=== PATIENT | male | born 1935 | race Caucasian/White ===

== ENCOUNTER 2016-08-23 11:34 | Inpatient (IN) | payer MEDICARE ==
--- NOTE | 2016-08-23 12:56 | ED ---
Williams Carson Karl, scribed for Janina Rosa MD on 08/23/16 at 1236 . Lower Extremity - HPI Summary HPI Summary: 80 y/o M AL presents w/ c/o constant 8/10 pain in his left foot for the past 2 days. Pt, with at bedside, stated that his left foot is swollen and he "cannot put any pressure on it" and is "afraid to fall down." Pt attempted to walk to the bathroom, had to put weight on his heal second to pain and was unable to walk. Pain is primarily along medial aspect of foot and arch. No ankle pain. Pt denies trauma. No calf pain. Pt chronically has edema in b/l LE - states has chf, a fib and is on water pills Pt's left foot is progressively swollen. Pt denies fevers, chills, rash. pt denies cp, sob, abd pain. No DIAZ, vision changes. No abd pain. No nausea, vomiting, diarrhea. No h/o gout. Pt normally takes Tramadol as needed for pain, Xanax, and Warfarin with his last dose of Tramadol being yesterday. Pt has been eating/drinking normally.Pt is very hard of hearing. Hx: A-fib, CHF, HTN, aortic valve replacement. - History of Current Complaint Chief Complaint: EDExtremityLower Stated Complaint: LEFT FOOT SWELLING Time Seen by Provider: 08/23/16 12:20 Hx Obtained From: Patient, Family/Unit Controller - Hx From Patient Unobtainable Due To: Other - limited second to QAWALANGIN Mechanism Of Injury: Unknown Onset of Pain: Days - 2 Onset/Duration: Still Present Severity Initially: Moderate Severity Currently: Moderate Pain Intensity: 8 - left foot pain Pain Scale Used: 0-10 Numeric Timing: Constant Location: Is Discrete @ - left foot Character Of Pain: Unable To Describe Associated Signs And Symptoms: Positive: Swelling, Redness. Negative: Bruising , Fever, Weakness, Knee Pain Aggravating Factor(s): Standing, Ambulation, Movement, Weight Bearing Alleviating Factor(s): Nothing Able to Bear Weight: No - Risk Factors Gout Risk Factors: Age Over 40, Male, Hypertension, Obesity - Allergies/Home Medications Allergies/Adverse Reactions: Allergies Allergy/AdvReac Type Severity Reaction Status Date / Time No Known Allergies Allergy Verified 12/14/13 16:41 Home Medications: Home Medications Nystatin TOP POWDER* 1 applic TOPICAL BID 08/23/16 [History Confirmed 08/23/16] PMH/Surg Hx/FS Hx/Imm Hx Previously Healthy: No Endocrine/Hematology History: Reports: Hx Anticoagulant Therapy - coumadin Cardiovascular History: Reports: Hx Atrial Fibrillation, Hx Congestive Heart Failure, Hx Valvular Heart Disease - s/p aortic valve replacement Respiratory History: Denies: Hx Asthma GI History: Denies: Hx Crohn's Disease History: Denies: Hx Acute Renal Failure Musculoskeletal History: Reports: Hx Arthritis Neurological History: Denies: Hx CVA Psychiatric History: Reports: Hx Anxiety Infectious Disease History: No Infectious Disease History: Denies: Traveled Outside the [place] in Last 30 Days - Family History Known Family History: Positive: Cardiac Disease, Hypertension, Other - colon CA - father, liver CA - mother Negative: Diabetes - Social History Occupation: Retired Lives: With Family Alcohol Use: Rare Substance Use Type: Reports: None Smoking Status (MU): Former Smoker Amount Used/How Often: quit 17 years ago Review of Systems Constitutional: Negative Negative: Fever, Chills Eyes: Negative ENT: Negative Positive: Other - b/l LE edema. Negative: Palpitations, Chest Pain Respiratory: Negative Negative: Shortness Of Breath, Cough Gastrointestinal: Negative Negative: Vomiting, Nausea Genitourinary: Negative Positive: Arthralgia - left foot , Edema - bilateral lower extremities Skin: Other - erythema left foot Neurological: Negative Psychological: Normal All Other Systems Reviewed And Are Negative: Yes Physical Exam Triage Information Reviewed: Yes Vital Signs On Initial Exam: Initial Vitals Temp Pulse Resp BP Pulse Ox 97.3 F 64 18 165/41 98 08/23/16 11:39 08/23/16 11:39 08/23/16 11:39 08/23/16 11:39 08/23/16 11:39 Vital Signs Reviewed: Yes Appearance: Positive: Well-Appearing, Pain Distress - with movement and palpation of foot only Skin: Positive: Warm, Skin Color Reflects Adequate Perfusion, Dry, Other - Pt with erythema volar aspect right foot over metatarsals Pt with erythema across lateral aspect of toes and metatarsals on left foot. no pain at site of erythema. Mild erythema medial mallelous. No tender Pt with 3 cm patch of dry skin and erythema left distal tiba - no warmth Eyes: Positive: Normal ENT: Positive: Normal ENT inspection. Negative: Hearing grossly normal - QAWALANGIN Neck: Positive: Nontender, No Lymphadenopathy Respiratory/Lung Sounds: Positive: Clear to Auscultation, Breath Sounds Present. Negative: Rales, Stridor, Wheezes Cardiovascular: Positive: Normal, Murmur, Leg Edema Left, Leg Edema Right - edema to b/l feet and LE to knee left slight > Right Abdomen Description: Positive: Nontender Bowel Sounds: Positive: Present Musculoskeletal: Positive: Normal, Strength/ROM Intact, Other - + tenderness with direct palpation of left great toe at MTP joint Pain with gentle palpation and passive/active movement pt with flex/ext ankle with discomfort in arch Neurological: Positive: Normal, Sensory/Motor Intact, Alert, Oriented to Person Place, Time Psychiatric: Positive: Normal AVPU Assessment: Alert - Vinay Coma Scale Best Eye Response: 4 - Spontaneous Best Motor Response: 6 - Obeys Commands Best Verbal Response: 5 - Oriented Coma Scale Total: 15 Diagnostics - Vital Signs Vital Signs Temp Pulse Resp BP Pulse Ox 08/23/16 11:46 63 17 98 08/23/16 11:45 148/46 08/23/16 11:39 97.3 F 64 18 165/41 98 - Laboratory Result Diagrams: 08/23/16 13:05 08/23/16 13:05 Lab Statement: Any lab studies that have been ordered have been reviewed, and results considered in the medical decision making process. - Radiology CXR Xray Interpretation: Positive (See Comments) Radiology Interpretation Completed By: Radiologist - IMPRESSION: 1. MILD CARDIOMEGALY. 2. SMALL LEFT PLEURAL EFFUSION XR Left Foot Xray Interpretation: Positive (See Comments) Radiology Interpretation Completed By: Radiologist - IMPRESSION: 1. SOFT TISSUE SWELLING. 2. OSTEOARTHRITIS. 3. NO APPRECIABLE EROSION OR PERIOSTEAL REACTION. 4. NO ACUTE OSSEOUS INJURY. IF SYMPTOMS PERSIST, RECOMMEND REPEAT IMAGING. - EKG 14:13 EKG Interpretation: A-fib at 48 bpm, PVC, RBBB - Additional Comments Diagnostic Additional Comments: Venous Doppler Study (Radiologist) IMPRESSION: NO LEFT LOWER EXTREMITY DEEP VEIN THROMBOSIS. Re-Evaluation - Re-Evaluation First Eval Re-Evaluation Time: 14:15 Change: Improved Comment: Pt states pain improved following morphine "I can move a little now". Reviewed labs with pt - continue to suspect gout. less concerned for cellulitis given no elevated wbc, no fever - d/w Dr. Day - will hold abx pending hospitalist evaluation. pt and aware will admit - in agreement with plan Lower Extremity Course/Dx - Course Assessment/Plan: Pt present by EMS with progressive pain and inability to walk second to pain in left foot. Pt with b/l LE edema L>R. Pt with mild erythema to foot - no warmth, fever. diff: cellulitis, gout, plantar fascitits, dvt very little suspicion for septic joint. Will check labs,imaging. analgesia. reassess - anticipate pt will likely need admission for safety. will hold abx pending lab results - low suspicion for infection - Diagnoses Provider Diagnoses: Gout, ARF (acute renal failure), Foot pain, left, Inability to walk - Physician Notifications Discussed Care of Patient With: Dr. Day (Hospitalist) at 14:13 who accepted the pt for admission. Discharge - Discharge Plan Condition: Improved Disposition: ADMITTED TO [facility] Referrals: Jf Powell MD [Primary Care Provider] - The documentation as recorded by the Williams soto Karl accurately reflects the service I personally performed and the decisions made by Moe dsouza Laura, MD.
[2016-08-23] MEDS ORDERED: Morphine INJ* 4 MG/ML 1 ML CARPUJECT IV ONE (12:57)
[2016-08-23 13:15] LABS: Hematocrit 38 % (42-52); Hemoglobin 12.6 g/dl (14.0-18.0); Mean Corpuscular HGB Conc 33 g/dl (31-36); Mean Corpuscular Hemoglobin 32 pg (27-31); Mean Corpuscular Volume 95 fL (80-94); Mean Platelet Volume 9 um3 (7.4-10.4); Red Cell Distribution Width 13 % (10.5-15); White Blood Count 11.7 10^3/ul (3.5-10.8)
--- NOTE | 2016-08-23 13:25 | RAD ---
HISTORY: Weakness COMPARISONS: November 15, 2010 VIEWS:1: Single frontal portable view of the chest at 12:45 PM FINDINGS: LINES AND TUBES: None. CARDIOMEDIASTINAL SILHOUETTE: The cardiac silhouette is mildly enlarged. The cardiomediastinal silhouette is otherwise normal for portable technique. PLEURA: There is blunting of left costophrenic angle LUNG PARENCHYMA: There are stable pleuroparenchymal changes of the right lung base. ABDOMEN: The upper abdomen is clear. There is no subphrenic gas. BONES AND SOFT TISSUES: The patient is status post median sternotomy. IMPRESSION: 1. MILD CARDIOMEGALY. 2. SMALL LEFT PLEURAL EFFUSION
--- NOTE | 2016-08-23 13:26 | RAD ---
HISTORY: Weakness, pain and swelling of left foot COMPARISONS: None VIEWS: 2, Frontal and lateral views of the left foot FINDINGS: BONE DENSITY: Normal. BONES: There is no displaced fracture. There are calcaneal enthesophytes. There is no appreciable erosion or periosteal reaction. JOINTS: There is osteoarthritis of the midfoot ALIGNMENT: There is no dislocation. SOFT TISSUES: There is soft tissue swelling of the forefoot OTHER FINDINGS: None. IMPRESSION: 1. SOFT TISSUE SWELLING. 2. OSTEOARTHRITIS. 3. NO APPRECIABLE EROSION OR PERIOSTEAL REACTION. 4. NO ACUTE OSSEOUS INJURY. IF SYMPTOMS PERSIST, RECOMMEND REPEAT IMAGING.
[2016-08-23 13:31] LABS: Albumin 3.7 g/dL (3.2-5.2); BUN/Creatinine Ratio 26.5 (8-20); C Reactive Protein 138.94 mg/L (< 5.00); Calcium 9.3 mg/dL (8.6-10.3); EGFR Non-African American 41.2 (>60); Globulin 4.1 g/dL (2-4); Magnesium 1.9 mg/dL (1.9-2.7); Potassium 3.9 mmol/L (3.5-5.0); Total Bilirubin 1.7 mg/dL (0.2-1.0); Total Protein 7.8 g/dL (6.4-8.9)
--- NOTE | 2016-08-23 13:48 | RAD ---
HISTORY: Left lower extremity edema COMPARISONS: None relevant TECHNIQUE: Multiple transverse and longitudinal ultrasound images were obtained of the left lower extremity from the level of the common femoral vein inferiorly through to the infrapopliteal veins using grayscale, color Doppler, and spectral Doppler imaging with and without compression and with augmentation. Comparison images were obtained of the contralateral common femoral vein. FINDINGS: There is limited evaluation of the peroneal veins. VEINS: The venous system of the left lower extremity is compressible throughout its course, with normal flow on color Doppler imaging and normal response to augmentation on spectral Doppler imaging. SOFT TISSUES: Unremarkable. OTHER FINDINGS: None. IMPRESSION: NO LEFT LOWER EXTREMITY DEEP VEIN THROMBOSIS
[2016-08-23 13:52] LABS: Erythrocyte Sed Rate 99 mm/Hr (0-40)
[2016-08-23 14:01] LABS: Troponin I 0.04 ng/mL (<0.04)
[2016-08-23] MEDS ORDERED: ALPRAZolam TAB* 0.25 MG PO PRN (14:40)
[2016-08-23] MEDS ORDERED: oxyCODONE/Acetamin 5/325 MG* TAB PO PRN ×2 (14:58→14:59)
[2016-08-23] MEDS ORDERED: Naproxen TAB* 250 MG PO SCH (15:00)
[2016-08-23] MEDS: Colchicine* 0.6 MG TAB PO SCH (16:11)
[2016-08-23] MEDS ORDERED: Warfarin TAB(*) 2.5 MG PO SCH (17:00)
[2016-08-23 20:29] LABS: Urine Bilirubin Negative (Negative); Urine Glucose Negative (Negative); Urine Nitrite Negative (Negative)
[2016-08-23] MEDS ORDERED: Omeprazole CAP* 20 MG PO SCH (21:00)
[2016-08-23] MEDS: Nystatin TOP POWDER* 15 GM BTL TOPICAL SCH (21:03)
--- NOTE | 2016-08-23 21:18 | HP ---
HISTORY AND PHYSICAL: DATE OF ADMISSION: 08/23/16 PRIMARY CARE PHYSICIAN: Jf Powell MD ATTENDING PHYSICIAN: Diane Day DO *(dictation provided by Nalini Gandhi NP) CHIEF COMPLAINT: Left foot pain. HISTORY OF PRESENT ILLNESS: Mr. Benites is an 80-year-old male with past medical history of diastolic congestive heart failure; bioprosthetic aortic valve replacement; AFib, on Coumadin; and hypertension, who presents today to the hospital with concern for left foot pain and inability to ambulate. Mr. Benites is extremely hard of hearing, but is able to communicate fairly well with his of 60 years, who is at the bedside. The report is obtained with her help today. Per the report, Mr. Benites has developed left foot pain and swelling. He developed swelling in the left leg over the past several days. The patient's and the patient are unable to characterize exactly when it started. He then developed some increased swelling in the right leg. He does have history of diastolic congestive heart failure for which he takes Lasix. I will note the patient did not take his Lasix this morning. In addition to his swelling, however, he had severe pain in his left foot primarily about his first digit and into his arch. This pain seems to have been noted as of about 2 days ago and is very severe today. The patient was unable to ambulate and therefore, he called EMS to come to the hospital. There is no report of fever. No chills. No cough. No shortness of breath. No nausea. No vomiting. No abdominal pain. No chest pain. Other than the leg pain, the patient and his report that he has been doing well. In the emergency room, Mr. Benites had a mild leukocytosis at 11.7; however, his ESR is 99 and his CRP is 138.94. He also had an elevated troponin to 0.4; however, this is in the setting of chronic kidney disease with BUN of 43 and creatinine 1.62. Lactic acid is 2.2. The patient had imaging of chest x-ray, foot x-ray, and venous Doppler studies all of which were negative. On examination, the patient had very tender first great toe on the left with some radiation into the arch. The patient was also noted to have uric acid 12.0. Based on Mr. Benites's presentation with suspicion for acute gouty arthritis flare with inability to ambulate, hospital medicine was called regarding admission. PAST MEDICAL HISTORY: 1. Atrial fibrillation, on chronic Coumadin therapy. 2. Prosthetic aortic valve replacement in 2000. 3. Diastolic congestive heart failure. 4. Hypertension. 5. History of cholecystectomy. 6. CKD, stage 3. MEDICATIONS: 1. Warfarin 2.5 mg on Thursday, Thursday, , Thursday, and Thursday alternating with 5 mg on Thursday and Thursday. 2. Alprazolam 0.25 mg p.r.n. 3. Amlodipine 2.5 mg p.o. daily. 4. Aspirin 81 mg p.o. daily. 5. Atorvastatin 10 mg p.o. daily. 6. Furosemide 40 mg Thursday, Thursday, and Thursday alternative with 20 mg Thursday, Thursday, Thursday, and . 7. Metoprolol succinate 50 mg p.o. daily. 8. Multivitamin 1 tab p.o. daily. 9. Nystatin applied topically b.i.d. 10. Quinapril 20 mg p.o. daily. ALLERGIES: No known drug allergies. FAMILY HISTORY: Per the report, mother had liver cancer and father had colon cancer. SOCIAL HISTORY: The patient quit smoking 16 years ago. He drinks an occasional glass of wine with dinner. There is no report of drug use. The patient lives with his who is his health care proxy. REVIEW OF SYSTEMS: A 14-point review of systems was completed with Mr. Benites and all those not mentioned above were negative. PHYSICAL EXAMINATION GENERAL: Mr. Benites is lying in the bed. He is in no acute distress. VITAL SIGNS: Temperature 98.9, heart rate 56, respiratory rate 24, O2 saturations 92% on room air, and blood pressure 148/61. LUNGS: Clear to auscultation bilaterally with no accessory muscle use and good aeration. HEART: S1 and S2. No murmur, rubs, or gallop. There is a prominent click at systole. ABDOMEN: Soft, nontender with bowel sounds positive x4. EXTREMITIES: No cyanosis or edema. NEUROLOGIC: He is alert and oriented x3 with very hard of hearing, in no acute distress. He moves all extremities equally except there is pain with movement of the left great toe. There is no focal asymmetry. Face is symmetrical. Extraocular movements are intact. SKIN: Intact. DIAGNOSTIC STUDIES/LAB DATA: Sodium 136, potassium 3.9, chloride 99, serum bicarb 28, BUN 43, creatinine 1.62, glucose 118, lactic acid 2.2, and uric acid 12.0. Troponin 0.04. C-reactive protein 138.94. BNP 130. WBC 11.7, hemoglobin 12.6, hematocrit 38, and platelet count 187. ESR 99. INR 3.34. Chest x-ray shows mild cardiomegaly and a small left pleural effusion. The EKG shows atrial fibrillation with a heart rate in the 50, PVC, right bundle-branch block, no significant difference from previous since 2011. Foot x-ray shows the following: "Soft tissue swelling, osteoarthritis, no appreciable erosion or periosteal reaction, no acute osseous injury." A venous Doppler study shows: "No left lower extremity deep vein thrombosis." ASSESSMENT: Mr. Benites is an 80-year-old male with past medical history of atrial fibrillation, on Coumadin; bioprosthetic aortic valve replacement; diastolic congestive heart failure, on Lasix; and hypertension, who presents today to the emergency room with concern for severe acute left great toe pain preventing ambulation. PLAN/RECOMMENDATIONS: Our plans are for observation in the hospital for the followin. Severe left great toe pain: The patient's symptoms are consistent with gout. He has monoarticular joint pain and an elevated uric acid. I believe his risk factor is his use of diuretics. Plan to treat with colchicine. I do not think NSAIDs are appropriate in this patient on warfarin and aspirin. The patient also has oxycodone available p.r.n. We will attempt ambulate him with physical therapy and work with his and discharge planners to arrange a safe discharge plan. 2. Atrial fibrillation: The patient's rate is controlled. We will continue on his home medications including warfarin. He is on a slightly overdose of warfarin for now, given his INR of 3.34. We will recheck in the AM. 3. Hypertension: Continue amlodipine, quinapril, and metoprolol. 4. Diastolic congestive heart failure: I believe that the patient's swelling in bilateral extremities is also contributing to his pain and difficulty ambulating. I think that despite the gout flair, he should continue on his home Lasix treatment. He should also have his legs elevated at all times while resting. 5. Chronic kidney disease, stage 3: The patient's BUN and creatinine are at baseline. 6. DVT prophylaxis: With heparin subcu. 7. Disposition: To telemetry floor. 8. Elevated troponin: The patient's troponin is 0.04 and will be repeated and the patient will be on telemetry. 9. Code status. Full code. The patient's states that she will try to discuss this with him to better determine his wishes. She states she has never spoken to him about it before. She would like for him to remain a full code for now. TIME SPENT: Approximately 60 minutes was spent in the admission of this patient , more than half of the time was spent with her and him at the bedside reviewing the events leading up to this hospitalization, performing the physical examination, and reviewing my plan of care. NALINI GANDHI NP CC: Dr. Powell * [id number]/CPS #: [id number] YUMI
[2016-08-24] MEDS: NS 0.9% 1000 ML* 1,000 ML IV SCH (01:39)
[2016-08-24 05:40] LABS: Hematocrit 35 % (42-52); Mean Corpuscular HGB Conc 34 g/dl (31-36); Mean Corpuscular Hemoglobin 32 pg (27-31); Mean Corpuscular Volume 95 fL (80-94); Mean Platelet Volume 10 um3 (7.4-10.4); Red Blood Count 3.71 10^6/ul (4.0-5.4); Red Cell Distribution Width 13 % (10.5-15); White Blood Count 7.8 10^3/ul (3.5-10.8)
[2016-08-24 05:55] LABS: BUN/Creatinine Ratio 33.6 (8-20); Calcium 8.7 mg/dL (8.6-10.3); EGFR African American 77.9 (>60); EGFR Non-African American 60.6 (>60); Potassium 3.5 mmol/L (3.5-5.0)
[2016-08-24] MEDS ORDERED: Furosemide TAB* 20 MG PO SCH (09:00)
[2016-08-24] MEDS ORDERED: Atorvastatin* 10 MG TAB PO SCH (09:00)
[2016-08-24] MEDS ORDERED: Metoprolol Succinate XL TAB* 50 MG PO SCH (09:00)
[2016-08-24] MEDS: Lisinopril TAB* 10 MG PO SCH (09:34)
[2016-08-24] MEDS: Colchicine* 0.6 MG TAB PO SCH (09:34)
[2016-08-24] MEDS: Prenatal Vitamin TAB PO SCH (09:34)
[2016-08-24] MEDS: amLODIPine TAB* 5 MG PO SCH (09:34)
[2016-08-24] MEDS: Aspirin Low Dose CHEW TAB* 81 MG PO SCH (09:35)
[2016-08-24] MEDS: Metoprolol Tartrate TAB* 25 MG PO SCH ×2 (09:35→16:58)
[2016-08-24] MEDS: Nystatin TOP POWDER* 15 GM BTL TOPICAL SCH ×2 (09:36→19:57)
[2016-08-24] MEDS ORDERED: Ketorolac INJ* 30 MG/ML 1 ML VIAL IV PUSH ONE (10:15)
[2016-08-24] MEDS ORDERED: Pantoprazole IV* 40 MG IV ONE (10:15)
--- NOTE | 2016-08-24 11:12 | PN ---
Hospitalist Progress Note . HOSPITALIST DISCHARGE NOTE: See dc instructions and summary by me. Patient stable for dc dc instructions reviewed with the patient at the bedside. DC patient home today.
[2016-08-24] MEDS ORDERED: Morphine INJ* 4 MG/ML 1 ML CARPUJECT IV ONE (12:45)
--- NOTE | 2016-08-24 12:45 | PN ---
Subjective Date of Service: 08/24/16 Interval History: . still with significant R foot / ankle pain c/w gout. got one dose of Toradol IV. on colchicine PO got IV protonix for GI protection. PT saw patient and he can't get up stairs to house or ambulate satisfactorily to make a safe dc today. I agree with keeping him another night. Will admit to inpatient status for ongoing pain control with iv opiates. reattempt PT eval in AM. . Family History: Unchanged from Admission Social History: Unchanged from Admission Past Medical History: Unchanged from Admission Objective Active Medications: . Alprazolam (Xanax Tab*) 0.25 mg PO DAILY PRN PRN Reason: ANXIETY Last Admin: 08/23/16 21:01 Dose: 0.25 mg Amlodipine Besylate (Norvasc Tab*) 2.5 mg PO DAILY [facility] Last Admin: 08/24/16 09:34 Dose: 2.5 mg Aspirin (Aspirin Low Dose Tab*) 81 mg PO DAILY [facility] Last Admin: 08/24/16 09:35 Dose: 81 mg Colchicine (Colcrys*) 0.6 mg PO DAILY [facility] Last Admin: 08/24/16 09:34 Dose: 0.6 mg Furosemide (Lasix Tab*) 20 mg PO SuTuThSa@0900 [facility] Last Admin: 08/24/16 09:34 Dose: 20 mg Furosemide (Lasix Tab*) 40 mg PO MoWeFr@0900 [facility] Sodium Chloride (Ns 0.9% 1000 Ml*) 1,000 mls @ 100 mls/hr IV PER RATE [facility] Last Admin: 08/24/16 01:39 Dose: 100 mls/hr Lisinopril (Prinivil Tab*) 20 mg PO DAILY [facility] Last Admin: 08/24/16 09:34 Dose: 20 mg Metoprolol Tartrate (Lopressor Tab*) 12.5 mg PO BID WITH MEALS [facility] Last Admin: 08/24/16 09:35 Dose: 12.5 mg Multivitamins ( Vitamin Tab*) 1 tab PO DAILY [facility] Last Admin: 08/24/16 09:34 Dose: 1 tab Nystatin (Nystatin Top Powder*) 1 applic TOPICAL BID [facility] Last Admin: 08/24/16 09:36 Dose: Not Given Oxycodone/Acetaminophen (Percocet 5/325 Tab*) 1 tab PO Q4H PRN PRN Reason: PAIN Last Admin: 08/24/16 09:35 Dose: 1 tab Oxycodone/Acetaminophen (Percocet 5/325 Tab*) 2 tab PO Q4H PRN PRN Reason: PAIN Warfarin Sodium (Coumadin Tab(*)) 2.5 mg PO DAILY@1700 [facility] PRN Reason: Protocol Last Admin: 08/23/16 16:11 Dose: 2.5 mg . Vital Signs 08/23/16 08/23/16 08/23/16 15:00 15:10 15:41 Temperature 98.9 F Pulse Rate 58 61 62 Respiratory 24 18 18 Rate Blood Pressure 149/53 148/61 176/50 (mmHg) O2 Sat by Pulse 92 98 Oximetry 08/23/16 08/23/16 08/23/16 16:23 19:24 21:01 Temperature 97.8 F 98.2 F Pulse Rate 62 55 Respiratory 18 17 16 Rate Blood Pressure 176/50 146/39 (mmHg) O2 Sat by Pulse 98 99 Oximetry Appearance: NAD at rest - painful grimacing with any weight on R leg. Eyes: No Scleral Icterus Ears/Nose/Mouth/Throat: NL Teeth, Lips, Gums, - - +[place] Neck: NL Appearance and Movements; NL JVP Respiratory: Symmetrical Chest Expansion and Respiratory Effort Cardiovascular: NL Sounds; No Murmurs; No JVD Abdominal: NL Sounds; No Tenderness; No Distention Lymphatic: No Cervical Adenopathy Extremities: - - R ankle.foot red/swollen Skin: No Rash or Ulcers Neurological: Alert and Oriented x 3 Lines/Tubes/Other Access: Clean, Dry and Intact Peripheral IV Nutrition: Taking PO's Result Diagrams: 08/24/16 04:47 08/24/16 04:47 Assess/Plan/Problems-Billing . Assessment: 80 yo man with acute gout flare and associated gait impairment and intractable pain. - Patient Problems (1) Acute gout Current Visit: Yes Status: Acute Priority: High Code(s): M10.9 - GOUT, UNSPECIFIED Comment: - IV toradol - IV opiates x 2 doses today for pain relief -- can use PO opiates for basal pain control during this episode. - PT consult appreciated - colchicine 0.6 mg PO daily --> increase to BID. (2) Intractable pain Current Visit: Yes Status: Acute Priority: High Code(s): R52 - PAIN, UNSPECIFIED Comment: - secondary to acute gout. - IV morphine x 2 today - IV toradol today - colchicine today - upgrade to inpatient - continue ASA
[2016-08-24] MEDS ORDERED: Morphine INJ* 2 MG/ML 1 ML CARPUJECT IV ONE (20:00)
[2016-08-24] MEDS: Saline NASAL SPRAY 0.65%* BTL BOTH NARES PRN (21:39)
[2016-08-25] MEDS: NS 0.9% 1000 ML* 1,000 ML IV SCH (00:07)
[2016-08-25] MEDS: Saline NASAL SPRAY 0.65%* BTL BOTH NARES PRN (01:41)
--- NOTE | 2016-08-25 01:50 | PN ---
Progress Note - Progress Note Note: Patient receiving IVF since yesterday. Has history of CHF. Fluids dcd. Reassess in AM.
[2016-08-25 06:58] LABS: BUN/Creatinine Ratio 28.7 (8-20); Calcium 8.1 mg/dL (8.6-10.3); EGFR African American 54.9 (>60); EGFR Non-African American 42.7 (>60); Potassium 3.7 mmol/L (3.5-5.0)
[2016-08-25] MEDS ORDERED: Furosemide TAB* 40 MG PO SCH (09:00)
[2016-08-25] MEDS: Metoprolol Tartrate TAB* 25 MG PO SCH (09:09)
[2016-08-25] MEDS: amLODIPine TAB* 5 MG PO SCH (09:10)
[2016-08-25] MEDS: Aspirin Low Dose CHEW TAB* 81 MG PO SCH (09:18)
[2016-08-25] MEDS: Colchicine* 0.6 MG TAB PO SCH (09:19)
[2016-08-25] MEDS: Lisinopril TAB* 10 MG PO SCH (09:20)
[2016-08-25] MEDS: Prenatal Vitamin TAB PO SCH (09:20)
[2016-08-25] MEDS: Nystatin TOP POWDER* 15 GM BTL TOPICAL SCH (09:22)
[2016-08-25 09:40] VITALS: BP 120/75
[2016-08-25] MEDS ORDERED: Colchicine* 0.6 MG TAB PO ONE (16:00)
--- NOTE | 2016-08-26 13:35 | DS ---
DISCHARGE SUMMARY: DATE OF ADMISSION: 08/23/16 DATE OF DISCHARGE: 08/25/16 PRIMARY CARE PROVIDER: Jf Powell MD PRIMARY DIAGNOSIS: Left metacarpophalangeal gout flare. SECONDARY DIAGNOSES: Include: 1. Atrial fibrillation. 2. History of bioprosthetic aortic valve replacement. 3. Diastolic congestive heart failure. 4. Hypertension. 5. History of cholecystectomy. 6. Chronic kidney disease. 7. Deafness, hearing impaired. MEDICATIONS ON DISCHARGE: 1. Nystatin topically twice daily. 2. Alprazolam 1 tab as needed. 3. Aspirin 81 mg daily. 4. Amlodipine 2.5 mg daily. 5. Metoprolol succinate 50 mg daily. 6. Lasix 40 mg Thursday, Thursday, and Thursday and 20 mg all other days. 7. Atorvastatin 10 mg daily. 8. Coumadin 2.5 mg Thursday, Thursday, , Thursday, and Thursday and 5 mg all other days. 9. Colchicine 0.6 mg daily until directed by Dr. Powell. PERTINENT LABS DURING HOSPITAL STAY: ESR was noted to be 99. Uric acid was 12.0. Creatinine on presentation 1.6 and on discharge 1.57. HISTORY OF PRESENT ILLNESS AND HOSPITAL COURSE: This is an 80-year-old man with no history of gout, presented to the hospital with left foot pain in his MCP. It was thought to represent a first presentation of a gouty flare and was started on colchicine with resolution of the pain. During the course of the hospital stay, he was maintained on his home medications. On the day of discharge, pain had completely resolved. The patient was able to ambulate without assistance. Of note, his INR on the day of discharge was 3.59. His Coumadin was held the day prior to discharge and restarted at 2.5 mg the evening of discharge. There were no complications during this patient's hospital stay. FOLLOWUP: At followup, please: 1. Evaluate for need to continue colchicine after resolution of pain. When pain has resolved, consider starting allopurinol to prevent prophylaxis. 2. The patient was directed to have INR performed 2 days after discharge with the results to be forwarded to . Please adjust Coumadin as necessary. 3. Consider following BMP for stability of creatinine on home dose of Lasix. 4. No other specific labs or vitals that need followup care. 5. Reasons to return to the hospital including, but not limited to, recurrent symptoms including worsening pain, fevers, chills, night sweats, chest pain, shortness of breath, nausea, vomiting, lightheadedness, loss of consciousness, and inability to obtain or tolerate medications were discussed with the patient and his . They acknowledged understanding. TIME SPENT: Greater than 60 minutes was spent on discharge of this patient with greater than half the time spent [id number] with the patient. CC: Dr. Powell * [id number]/[facility] #: [id number] MTDD
== END 2016-08-25 11:58 | disposition home or self-care (01) | DRG 554 ==
LOC: ED 11:34 → MEDTELE 14:13 → OBSVTOIN 08-24 12:47
PROVIDERS: ADMIT Hospitalist; ATTEND Internal Medicine
DX: M10.072 Idiopathic gout, left ankle and foot (principal); I48.91 Unspecified atrial fibrillation; I13.0 Hypertensive heart and chronic kidney disease with heart failure and stage 1 through stage 4 chronic kidney disease, or unspecified chronic kidney disease; I50.30 Unspecified diastolic (congestive) heart failure; N18.3 Chronic kidney disease, stage 3 (moderate); H91.90 Unspecified hearing loss, unspecified ear; Z79.01 Long term (current) use of anticoagulants; Z79.82 Long term (current) use of aspirin; Z79.899 Other long term (current) drug therapy; Z87.891 Personal history of nicotine dependence; Z80.0 Family history of malignant neoplasm of digestive organs
CPT/HCPCS: 36415; 71010; 80048; 80053; 81003; 82550; 82553; 83605; 83735; 83880; 84484; 84550; 85025; 85610; 85652; 85730; 86140; 87040; 93005; A9270-GY; G0378; J1885; J2270

== ENCOUNTER 2019-04-05 13:06 | Inpatient (IN) | payer MEDICARE ==
--- NOTE | 2019-04-05 13:23 | ED ---
Shortness of Breath - History of Current Complaint Chief Complaint: EDShortnessOfBreath Time Seen by Provider: 04/05/19 13:21 - Allergy/Home Medications Allergies/Adverse Reactions: Allergies Allergy/AdvReac Type Severity Reaction Status Date / Time No Known Allergies Allergy Verified 04/05/19 13:49 Home Medications: Home Medications Fluticasone NASAL SPRAY 50MCG* [Flonase NASAL SPRAY 50MCG*] 2 spray BOTH NARES DAILY 04/05/19 [History Confirmed 04/05/19] Furosemide TAB* [Lasix TAB*] 80 mg PO DAILY 04/05/19 [History Confirmed 04/05/19 ] Levothyroxine TAB* [Synthroid TAB*] 25 mcg PO DAILY 04/05/19 [History Confirmed 04/05/19] LoraTADine TAB(NF) [Claritin 10 MG TAB(NF)] 10 mg PO DAILY 04/05/19 [History Confirmed 04/05/19] Metolazone TAB* [Zaroxolyn TAB*] 2.5 mg PO WEEKLY 04/05/19 [History Confirmed ] Metoprolol Succinate XL TAB* [Toprol XL TAB*] 25 mg PO DAILY 04/05/19 [History Confirmed 04/05/19] Montelukast Sodium TAB* [Singulair TAB*] 10 mg PO DAILY 04/05/19 [History Confirmed 04/05/19] Multivitamins/Minerals TAB* [Theragran/minerals TAB*] 1 tab PO DAILY 04/05/19 [ History Confirmed 04/05/19] Omeprazole CAP (NF) [Prilosec CAP* 20 MG] 20 mg PO DAILY 04/05/19 [History Confirmed 04/05/19] Petrolatum,White [Aquaphor] 1 applic TOPICAL DAILY 04/05/19 [History Confirmed 04/05/19] Sertraline* [Zoloft*] 25 mg PO DAILY 04/05/19 [History Confirmed 04/05/19] PMH/Surg Hx/FS Hx/Imm Hx Endocrine/Hematology History: Reports: Hx Anticoagulant Therapy - warfarin at home supratherapeutic Cardiovascular History: Reports: Hx Atrial Fibrillation, Hx Congestive Heart Failure, Hx Hypercholesterolemia, Hx Hypertension, Hx Valvular Heart Disease - aortic valve replaced 2000 Respiratory History: Denies: Hx Asthma GI History: Reports: Hx Gall Bladder Disease - s/p cholecystectomy Denies: Hx Crohn's Disease History: Reports: Hx Chronic Renal Failure Denies: Hx Acute Renal Failure Musculoskeletal History: Reports: Hx Arthritis Sensory History: Reports: Hx Hearing Problem Denies: Hx Contacts or Glasses, Hx Hearing Aid Opthamlomology History: Denies: Hx Contacts or Glasses Neurological History: Denies: Hx CVA Psychiatric History: Reports: Hx Anxiety - Surgical History Surgery Procedure, Year, and Place: Open heart [address] [place] [place] Hx Anesthesia Reactions: No - Immunization History Date of Tetanus Vaccine: UTD Date of Influenza Vaccine: 2016 Infectious Disease History: No Infectious Disease History: Denies: Traveled Outside the [place] in Last 30 Days - Family History Known Family History: Positive: Cardiac Disease, Hypertension, Other - colon CA - father, liver CA - mother Negative: Diabetes - Social History Alcohol Use: None Alcohol Amount: 1 glass Substance Use Type: Reports: None Smoking Status (MU): Former Smoker Amount Used/How Often: 1/2 ppd Length of Time of Smoking/Using Tobacco: 46 yrs Review of Systems Positive: Edema - Bilateral LE Physical Exam - Summary Physical Exam Summary: Appearance: Ill-appearing, no acute pain distress, well-nourished, Skin: Warm, pale, dry. Dermatitis bilateral LE, right more than left. Macular papular rash on right anterior tibia (old per ), 7 cm area macular popular erythematous area on left lateral lower leg. Head: Normal Head/Face inspection, atraumatic Eyes: Conjunctiva clear ENT: Normal inspection. Hard of hearing. Neck: Supple, no nodes, no JVD Respiratory: no respiratory distress. Crackles bilateral bases, Cardio: Bradycardic, No murmur, pulses normal, brisk capillary refill Abdomen: Soft, nontender Bowel sounds: Present Musculoskeletal: Strength Intact/ROM intact, no calf tenderness, 2+ pitting edema Psychological: Normal Neuro: Alert, muscle tone normal, no focal deficit Triage Information Reviewed: Yes Vital Signs On Initial Exam: Initial Vitals Temp Pulse Resp BP Pulse Ox 98.8 F 62 18 113/54 91 04/05/19 13:07 04/05/19 13:07 04/05/19 13:07 04/05/19 13:07 04/05/19 13:07 Vital Signs Reviewed: Yes Diagnostics - Vital Signs Vital Signs Temp Pulse Resp BP Pulse Ox 04/05/19 13:07 98.8 F 62 18 113/54 91 - Laboratory Result Diagrams: 04/05/19 14:08 04/05/19 14:08 Lab Statement: Any lab studies that have been ordered have been reviewed, and results considered in the medical decision making process. - EKG 13:27 Cardiac Rate: Other Rate - 60 BPM EKG Rhythm: Atrial Fibrillation ST Segment: Normal Ectopy: None EKG Comparison: No Significant Change Summary of EKG Findings: EKG at 13:27 on 04/05/19 shows AFib, RBBB, prolong QTc (531), left axis -85, no acute changes, no change compared with 08/23/16. Reviewed and interpreted by ED physician. Course/Dx - Course Assessment/Plan: EKG at 13:27 shows AFib, RBBB, prolong QTc (531), left axis -85 , no acute changes, no change compared with 08/23/16. - Physician Notifications Discussed Care of Patient With: Amara Vang - At 15:52, Dr. Vang states they will consult. Time Discussed With Above Provider: 15:52 Instructed by Provider To: Other Discharge ED - Discharge Plan Referrals: Jf Powell MD [Primary Care Provider] - - Attestation Statements Document Initiated by Scribe: Yes Documenting Scribe: Fifi Roy Provider For Whom Scribe is Documenting (Include Credential): Dominique Villa MD. Scribe Attestation: Fifi Carson, scribed for Dominique Villa MD. on 04/05/19 at 1600.
[2019-04-05 14:22] LABS: ABS Eosinophils 0.1 10^3/ul (0-0.6); ABS Lymphocytes 0.5 10^3/ul (1.0-4.8); ABS Monocytes 0.7 10^3/ul (0-0.8); ABS Neutrophils 4.6 10^3/ul (1.5-7.7); Eosinophil % 1.6 %; Hematocrit 32 % (42-52); Hemoglobin 10.6 g/dL (14.0-18.0); Lymphocyte % 8.3 %; Mean Corpuscular HGB Conc 34 g/dL (31-36); Mean Corpuscular Hemoglobin 31 pg (27-31); Mean Corpuscular Volume 91 fL (80-94); Nucleated Red Blood Cells % 0.1; Platelet Count 169 10^3/uL (150-450); Red Blood Count 3.46 10^6 /uL (4.18-5.48); Red Cell Distribution Width 16 % (10-15); White Blood Count 5.9 10^3/uL (3.5-10.8)
[2019-04-05 14:28] LABS: Activated Partial Thrombo Time 48.8 seconds (26.0-38.0)
[2019-04-05 14:40] LABS: ALT 11 U/L (7-52); AST 20 U/L (13-39); Albumin 3.5 g/dL (3.2-5.2); Albumin/Globulin Ratio 0.9 (1-3); Alkaline Phosphatase 97 U/L (34-104); Anion Gap 8 mmol/L (2-11); BUN/Creatinine Ratio 27.9 (8-20); Blood Urea Nitrogen 43 mg/dL (6-24); C Reactive Protein 17.47 mg/L (<8.01); CO2 Carbon Dioxide 34 mmol/L (22-32); Calcium 8.8 mg/dL (8.6-10.3); Chloride 99 mmol/L (101-111); Creatine Kinase 19 U/L (10-223); EGFR African American 52.5 (>60); EGFR Non-African American 43.4 (>60); Globulin 3.8 g/dL (2-4); Glucose 104 mg/dL (70-100); Potassium 3.3 mmol/L (3.5-5.0); Sodium 141 mmol/L (135-145); Total Protein 7.3 g/dL (6.4-8.9)
[2019-04-05 14:44] LABS: CKMB ng/mL 1.4 ng/mL (0.6-6.3); Troponin I 0.04 ng/mL (<0.04)
[2019-04-05 14:56] LABS: INR 5.42 (0.82-1.09)
[2019-04-05 16:02] LABS: Urine Appearance Clear; Urine Bacteria Absent (Absent); Urine Bilirubin Negative (Negative); Urine Blood Negative (Negative); Urine Color Yellow; Urine Glucose Negative (Negative); Urine Ketones Negative (Negative); Urine Nitrite Negative (Negative); Urine Protein Negative (Negative); Urine Red Blood Cell 1+(3-5/hpf) (Absent); Urine Specific Gravity 1.013 (1.010-1.030); Urine Urobilinogen Positive (Negative); Urine White Blood Cell Trace(0-5/hpf) (Absent)
[2019-04-05] MEDS ORDERED: Furosemide IV* 10 MG/ML VIAL (40 MG) IV ONE (16:07)
--- NOTE | 2019-04-05 16:07 | ED ---
Complex/Multi-Sys Presentation - HPI Summary HPI Summary: Pt is an 83 y/o M presenting to the ED for a chief complaint of cough and bilateral leg edema. Pt also has a rash on the right and left anterior leg for which his has applied an antibiotic and Aquaphor. Pts also states pt has irritation in the groin area c/w candidiasis for which pts has applied Nystatin and Cilastatin. Pt also has difficulty hearing. Pts states pt cannot get hearing aid because pt needs a cochlear implant. Pt denies abdominal pain, N/V/D, or fever. Pt previous saw Dr. Neville in November who also noticed the edema. Pts states pt has not been eating well. Pt is taking diuretics and Coumadin. Pts expressed that she would prefer if the pt is discharged home. - History Of Current Complaint Chief Complaint: EDShortnessOfBreath Time Seen by Provider: 04/05/19 13:21 Hx Obtained From: Patient, Family/Dock Pumper - Hx From Patient Unobtainable Due To: Other - difficult to obtain due to pt's [place] , need cochlear transplant Onset/Duration: Gradual Onset Timing: Constant, Weeks Severity Currently: Moderate Severity Initially: Moderate Location: Negative Aggravating Factor(s): nothing Alleviating Factor(s): nothing Associated Signs And Symptoms: Positive: Cough, Edema - Bilateral LE, Anticoagulation Therapy, Other - Positive rash on bilateral LE; irritation in groin area, longstanding, c/w disha. Negative: Nausea, Vomiting, Diarrhea, Abdominal Pain, Fever - Allergies/Home Medications Allergies/Adverse Reactions: Allergies Allergy/AdvReac Type Severity Reaction Status Date / Time No Known Allergies Allergy Verified 04/05/19 13:49 Home Medications: Home Medications Fluticasone NASAL SPRAY 50MCG* [Flonase NASAL SPRAY 50MCG*] 2 spray BOTH NARES DAILY 04/05/19 [History Confirmed 04/05/19] Furosemide TAB* [Lasix TAB*] 80 mg PO DAILY 04/05/19 [History Confirmed 04/05/19 ] Levothyroxine TAB* [Synthroid 25 MCG TAB*] 25 mcg PO DAILY 04/05/19 [History Confirmed 04/05/19] LoraTADine TAB(NF) [Claritin 10 MG TAB(NF)] 10 mg PO DAILY 04/05/19 [History Confirmed 04/05/19] Metolazone TAB* [Zaroxolyn TAB*] 2.5 mg PO WEEKLY 04/05/19 [History Confirmed ] Montelukast Sodium TAB* [Singulair 10 MG TAB*] 10 mg PO DAILY 04/05/19 [History Confirmed 04/05/19] Multivitamins/Minerals TAB* [Theragran/minerals TAB*] 1 tab PO DAILY 04/05/19 [ History Confirmed 04/05/19] Omeprazole CAP (NF) [Prilosec CAP* 20 MG] 20 mg PO DAILY 04/05/19 [History Confirmed 04/05/19] Petrolatum,White [Aquaphor] 1 applic TOPICAL DAILY 04/05/19 [History Confirmed 04/05/19] Sertraline* [Zoloft*] 25 mg PO DAILY 04/05/19 [History Confirmed 04/05/19] PMH/Surg Hx/FS Hx/Imm Hx Previously Healthy: No Endocrine/Hematology History: Reports: Hx Anticoagulant Therapy - warfarin Cardiovascular History: Reports: Hx Atrial Fibrillation, Hx Congestive Heart Failure, Hx Hypercholesterolemia, Hx Hypertension, Hx Valvular Heart Disease - aortic valve replaced 2000 Respiratory History: Denies: Hx Asthma GI History: Reports: Hx Gall Bladder Disease - s/p cholecystectomy Denies: Hx Crohn's Disease History: Reports: Hx Chronic Renal Failure Denies: Hx Acute Renal Failure Musculoskeletal History: Reports: Hx Arthritis Sensory History: Reports: Hx Hearing Problem Denies: Hx Contacts or Glasses, Hx Hearing Aid Opthamlomology History: Denies: Hx Contacts or Glasses EENT History: Reports: Other - needs cochlear transplant Neurological History: Denies: Hx CVA Psychiatric History: Reports: Hx Anxiety - Surgical History Surgical History: Yes Surgery Procedure, Year, and Place: Aortic Valve Replacement [address] [place] Hx Anesthesia Reactions: No Infectious Disease History: No Infectious Disease History: Denies: Traveled Outside the [place] in Last 30 Days - Family History Known Family History: Positive: Cardiac Disease, Hypertension, Other - colon CA - father, liver CA - mother Negative: Diabetes - Social History Lives: With Family Alcohol Use: Weekly Alcohol Amount: wine Substance Use Type: Reports: None Hx Tobacco Use: Yes Smoking Status (MU): Former Smoker Amount Used/How Often: 1/2 ppd Length of Time of Smoking/Using Tobacco: 46 yrs Review of Systems Negative: Fever Cardiovascular: Negative Positive: Cough Negative: Abdominal Pain, Vomiting, Diarrhea, Nausea Positive: Edema - BLE Positive: Rash - Bilateral LE, Other - Irritation in groin area Neurological: Negative Psychological: Normal All Other Systems Reviewed And Are Negative: Yes Physical Exam - Summary Physical Exam Summary: Appearance: Ill-appearing, no acute pain distress, well-nourished, Skin: Warm, pale, dry. Dermatitis bilateral LE, right more than left. Macular papular rash on right anterior tibia (old per ), 7 cm area macular popular erythematous area on left lateral lower leg. intertrigonal redness Head: Normal Head/Face inspection, atraumatic Eyes: Conjunctiva clear ENT: Normal inspection. Hard of hearing. Neck: Supple, no nodes, no JVD Respiratory: no respiratory distress. Crackles bilateral bases, Cardio: Bradycardic, No murmur, pulses normal, brisk capillary refill Abdomen: Soft, nontender Bowel sounds: Present Musculoskeletal: Strength Intact/ROM intact, no calf tenderness, 2+ pitting edema Psychological: Normal Neuro: Alert, muscle tone normal, no focal deficit Triage Information Reviewed: Yes Vital Signs On Initial Exam: Initial Vitals Temp Pulse Resp BP Pulse Ox 98.8 F 62 18 113/54 91 04/05/19 13:07 04/05/19 13:07 04/05/19 13:07 04/05/19 13:07 04/05/19 13:07 Vital Signs Reviewed: Yes Diagnostics - Vital Signs Vital Signs Temp Pulse Resp BP Pulse Ox 04/05/19 15:00 16 04/05/19 14:31 55 21 133/41 94 04/05/19 14:02 56 40 126/56 94 04/05/19 14:00 47 24 95 04/05/19 13:31 59 15 121/47 94 04/05/19 13:28 59 23 93 04/05/19 13:07 98.8 F 62 18 113/54 91 - Laboratory Lab Results: Lab Results 04/05/19 04/05/19 04/05/19 Range/Units 14:08 14:08 14:08 WBC 5.9 (3.5-10.8) 10^3/uL RBC 3.46 L (4.18-5.48) 10^6 /uL Hgb 10.6 L (14.0-18.0) g/dL Hct 32 L (42-52) % MCV 91 (80-94) fL MCH 31 (27-31) pg MCHC 34 (31-36) g/dL RDW 16 H (10-15) % Plt Count 169 (150-450) 10^3/uL MPV 8.0 (7.4-10.4) fL Neut % (Auto) 78.3 % Lymph % (Auto) 8.3 % [place] % (Auto) 11.2 % Eos % (Auto) 1.6 % Baso % (Auto) 0.6 % Absolute Neuts (auto) 4.6 (1.5-7.7) 10^3/ul Absolute Lymphs (auto) 0.5 L (1.0-4.8) 10^3/ul Absolute Monos (auto) 0.7 (0-0.8) 10^3/ul Absolute Eos (auto) 0.1 (0-0.6) 10^3/ul Absolute Basos (auto) 0.0 (0-0.2) 10^3/ul Absolute Nucleated RBC 0.0 10^3/ul Nucleated RBC % 0.1 INR (Anticoag Therapy) (0.82-1.09) APTT (26.0-38.0) seconds Sodium 141 (135-145) mmol/L Potassium 3.3 L (3.5-5.0) mmol/L Chloride 99 L (101-111) mmol/L Carbon Dioxide 34 H (22-32) mmol/L Anion Gap 8 (2-11) mmol/L BUN 43 H (6-24) mg/dL Creatinine 1.54 H (0.67-1.17) mg/dL Est GFR ( Amer) 52.5 (>60) Est GFR (Non-Af Amer) 43.4 (>60) BUN/Creatinine Ratio 27.9 H (8-20) Glucose 104 H (70-100) mg/dL Lactic Acid 1.9 (0.5-2.0) mmol/L Calcium 8.8 (8.6-10.3) mg/dL Total Bilirubin 0.90 (0.2-1.0) mg/dL AST 20 (13-39) U/L ALT 11 (7-52) U/L Alkaline Phosphatase 97 (34-104) U/L Total Creatine Kinase 19 (10-223) U/L CK-MB (CK-2) 1.4 (0.6-6.3) ng/mL Troponin I 0.04 H* (<0.04) ng/mL C-Reactive Protein 17.47 H (<8.01) mg/L B-Natriuretic Peptide (<=100) pg/mL Total Protein 7.3 (6.4-8.9) g/dL Albumin 3.5 (3.2-5.2) g/dL Globulin 3.8 (2-4) g/dL Albumin/Globulin Ratio 0.9 L (1-3) 04/05/19 04/05/19 Range/Units 14:08 14:08 WBC (3.5-10.8) 10^3/uL RBC (4.18-5.48) 10^6 /uL Hgb (14.0-18.0) g/dL Hct (42-52) % MCV (80-94) fL MCH (27-31) pg MCHC (31-36) g/dL RDW (10-15) % Plt Count (150-450) 10^3/uL MPV (7.4-10.4) fL Neut % (Auto) % Lymph % (Auto) % [place] % (Auto) % Eos % (Auto) % Baso % (Auto) % Absolute Neuts (auto) (1.5-7.7) 10^3/ul Absolute Lymphs (auto) (1.0-4.8) 10^3/ul Absolute Monos (auto) (0-0.8) 10^3/ul Absolute Eos (auto) (0-0.6) 10^3/ul Absolute Basos (auto) (0-0.2) 10^3/ul Absolute Nucleated RBC 10^3/ul Nucleated RBC % INR (Anticoag Therapy) 5.42 H* (0.82-1.09) APTT 48.8 H (26.0-38.0) seconds Sodium (135-145) mmol/L Potassium (3.5-5.0) mmol/L Chloride (101-111) mmol/L Carbon Dioxide (22-32) mmol/L Anion Gap (2-11) mmol/L BUN (6-24) mg/dL Creatinine (0.67-1.17) mg/dL Est GFR ( Amer) (>60) Est GFR (Non-Af Amer) (>60) BUN/Creatinine Ratio (8-20) Glucose (70-100) mg/dL Lactic Acid (0.5-2.0) mmol/L Calcium (8.6-10.3) mg/dL Total Bilirubin (0.2-1.0) mg/dL AST (13-39) U/L ALT (7-52) U/L Alkaline Phosphatase (34-104) U/L Total Creatine Kinase (10-223) U/L CK-MB (CK-2) (0.6-6.3) ng/mL Troponin I (<0.04) ng/mL C-Reactive Protein (<8.01) mg/L B-Natriuretic Peptide 789 H (<=100) pg/mL Total Protein (6.4-8.9) g/dL Albumin (3.2-5.2) g/dL Globulin (2-4) g/dL Albumin/Globulin Ratio (1-3) Result Diagrams: 04/06/19 06:09 04/08/19 06:21 Lab Statement: Any lab studies that have been ordered have been reviewed, and results considered in the medical decision making process. - Radiology Chest x-ray Radiology Interpretation Completed By: Radiologist Summary of Radiographic Findings: Chest x-ray IMPRESSION: 1. Bibasilar predominant airspace opacification and small pleural effusions are likely. floor representative of CHF; however, focal infiltrate and atelectasis can have similar. appearance. 2. Similar cardiomegaly status post aVR. Reviewed by ED physician. - EKG 13:27 Cardiac Rate: NL - 60 EKG Rhythm: Sinus Rhythm ST Segment: Non-Specific Ectopy: None EKG Comparison: No Significant Change - c/w 08/23/16 Summary of EKG Findings: EKG at 13:27 shows 60 BPM with AFib, RBBB, prolong QTc (531), left axis -85, no acute changes, no change compared with 08/23/16. EKG has been reviewed and interpreted by ED physician. Re-Evaluation - Re-Evaluation First Eval Re-Evaluation Time: 16:00 Change: Unchanged Comment: still with SOB, no chest pain. CXR and labs c/w CHF. Will give IV Lasix Complex Multi-Symp Course/Dx Course Of Treatment: Pt is an 83 y/o M presenting to the ED for a chief complaint of cough and bilateral leg edema. He denies CP. EKG at 13:27 shows AFib, RBBB, prolong QTc (531), left axis -85, no acute changes, no change compared with 08/23/16. Dr. Villa has read and interpreted this EKG. Chest x- ray IMPRESSION: 1. Bibasilar predominant airspace opacification and small pleural effusions are likely. floor representative of CHF; however, focal infiltrate and atelectasis can have similar. appearance. 2. Similar cardiomegaly status post aVR. Dr. Villa has reviewed this report. Bloodwork was obtained. Abnormal values include Hgb 10.6, Hct 32, INR 5.42 (on warfarin), APTT 48.8 potassium 3.3, chloride 99, carbon dioxide 34, BUN 43, creatinine 1.54, BUN/ creatinine ratio 27.9, glucose 104, magnesium 1.5, CRP 17.47, BNP 789, trop 0.04 , albumin/globulin 0.9. UA was positive for urobilinogen, 1+ leukocyte esterase , 1+ RBC, and trace WBC. At 15:52, Dr. Vang states they will consult. 1841 - Patient was evaluated by hospitalist services, patient was admitted to [facility]. - Diagnoses Provider Diagnoses: CHF (congestive heart failure), Elevated troponin I level, Dermatitis, Atrial fibrillation, Supratherapeutic INR - Physician Notifications Discussed Care Of Patient With: Amara Vang - At 15:52, Dr. Vang states they will consult. Time Discussed With Above Provider: 15:52 - Critical Care Time Critical Care Time: 30-74 min - 30 min Discharge ED - Sign-Out/Discharge Documenting (check all that apply): Patient Departure - admit All imaging exams completed and their final reports reviewed: Yes - Discharge Plan Condition: Stable Disposition: ADMITTED TO [facility] - Billing Disposition and Condition Condition: STABLE Disposition: Admitted to [facility] - Attestation Statements Document Initiated by Scribe: Yes Documenting Scribe: Fifi Roy and Camacho Nelson Provider For Whom Scribe is Documenting (Include Credential): Dominique Villa MD. Scribe Attestation: I, Fifi Roy and Camacho Nelson, scribed for Dominique Villa MD. on at [id number]. Scribe Documentation Reviewed: Yes Provider Attestation: The documentation as recorded by the scribe, Fifi Roy and Camacho Nelson accurately reflects the service I personally performed and the decisions made by me, Dominique Villa MD. Status of Scribe Document: Viewed
[2019-04-05] MEDS ORDERED: Potassium Chlor TAB* 20 MEQ TAB.ER PO ONE (17:29)
[2019-04-05 17:44] LABS: Magnesium 1.5 mg/dL (1.9-2.7)
[2019-04-05] MEDS ORDERED: DOXYcycline IV* 100 MG in NS 0.9% 250 ML* 250 ML IVPB ONE (18:17)
[2019-04-05] MEDS ORDERED: Acetaminophen TAB* 325 MG PO PRN (18:42)
[2019-04-05] MEDS ORDERED: Magnesium Sulf 4 GM/100 ML IV* 4,000 MG/100 ML BAG IVPB ONE (18:46)
[2019-04-05] MEDS: cefTRIAXone(*) 1 GM in NS 0.9% 50 ML* 50 ML IVPB SCH (19:10)
[2019-04-06] MEDS: ALPRAZolam TAB* 0.25 MG PO PRN ×2 (00:01→20:19)
[2019-04-06] MEDS: Nystatin TOP POWDER* 15 GM BTL TOPICAL SCH ×3 (00:02→20:19)
--- NOTE | 2019-04-06 00:42 | HP ---
CC: Dr. Powell * HISTORY AND PHYSICAL: DATE OF ADMISSION: 04/05/19 PROVIDER: Jordin Parra NP PRIMARY CARE PROVIDER: Dr. Powell. ATTENDING PHYSICIAN WHILE IN THE HOSPITAL: Dr. Amara Earl * (dictated by Jordin Parra NP) CHIEF COMPLAINT: Cough. HISTORY OF PRESENT ILLNESS: Mr. Benites is an 83-year-old male with a past medical history significant for atrial fibrillation, on chronic anticoagulation with Coumadin; prosthetic aortic valve replacement in 2000; history of diastolic congestive heart failure; hypertension; chronic kidney disease stage 3 , who presented to the emergency room with complaints of productive cough for 2 days with thick secretions. The patient denies any fevers. He does report decreased appetite. He denies any chest pain or edema. He does report productive cough with thick dlamc-fu-vrrgb secretion. Denies any hemoptysis or shortness of breath. No nausea, vomiting, diarrhea, abdominal pain, gross hematuria or dysuria. Denies any focal weakness, sensory loss, visual complaints, dysphagia, arthralgias, myalgias. He does complain of rash to his groin and right lower leg with redness. Denies any psychosis or anxiety. While in the emergency room, the patient had routine lab work drawn and a chest x- ray, which showed an elevated BNP of 79, CRP was 17.47, elevation in troponin was 0.04, hypokalemia and hypomagnesemia, and an INR of 5.42. Chest x- ray showed bibasilar prominent airspace opacification and small pleural effusions are likely registration representative of CHF; however, focal infiltrate and atelectasis can be similar in appearance from cardiomegaly status post aortic valve replacement. Given the patient's productive cough and concern for congestive heart failure, Hospital Medicine was asked to evaluate for admission. PAST MEDICAL HISTORY: Significant for: 1. Atrial fibrillation, on chronic Coumadin therapy. 2. Prosthetic aortic valve 2000. 3. History of diastolic congestive heart failure. 4. Hypertension. 5. Chronic kidney disease. PAST SURGICAL HISTORY: 1. Cholecystectomy. 2. Aortic valve replacement. HOME MEDICATIONS: Include: 1. Metolazone 5 mg weekly. 2. Xanax 0.25 mg p.o. daily p.r.n. 3. Fluticasone nasal spray 2 sprays both nares daily. 4. Loratadine 10 mg p.o. daily. 5. Multivitamin 1 tablet p.o. daily. 6. Furosemide 80 mg p.o. daily. 7. Levothyroxine 25 mcg p.o. daily. 8. Sertraline 25 mg p.o. daily. 9. Atorvastatin 10 mg p.o. daily. 10. Metoprolol 25 mg p.o. daily. 11. Singulair 10 mg p.o. daily. 12. Warfarin 2.5 mg daily. 13. Nystatin powder topically b.i.d. 14. Aquaphor topically daily. ALLERGIES: No known drug allergies. FAMILY HISTORY: No reported history of coronary artery disease or diabetes. Mother with liver cancer. Father with history of unknown type of cancer. SOCIAL HISTORY: The patient quit smoking in 2000. Prior to that he smoked for 40 years approximately half a pack per week. He does report occasional alcohol use. No illicit drug use. He is . Surrogate decision maker in the event he is unable to make his own decisions is his . He is a full code. REVIEW OF SYSTEMS: A 14-point review of systems was completed. All pertinent positives are mentioned in the HPI. PHYSICAL EXAMINATION GENERAL: At this time, Mr. Benites is an 83-year-old male; he is resting comfortably on a stretcher in the emergency room. He is in no acute respiratory distress. He is alert and oriented x3. He has severe hearing loss. VITAL SIGNS: Blood pressure 161/60, heart rate 59, respirations are 24, O2 saturation 93%, temperature is 97.1. HEENT: Head is atraumatic, normocephalic. Eyes: EOMs are intact. Sclerae anicteric and not pale. Oral mucosa appeared to be moist. NECK: Supple. LUNGS: Clear to auscultation bilaterally. No wheezes, rales, or rhonchi. CARDIAC: S1, S2. Irregular rate and rhythm. No rubs or gallops. ABDOMEN: Obese, soft and nontender. Bowel sounds are present x4. EXTREMITIES: His lower extremities with 3+ pitting edema noted to the lower extremities. He does have a red erythematous rash noted to the right lower leg. NEUROLOGIC: He is awake, alert, and oriented x3. He is hard of hearing. His speech is clear. There are no gross focal deficits. Thought process intact. SKIN: He does have a rash noted to his right allen that is reddened. LABORATORY DATA AND DIAGNOSTIC STUDIES: WBCs are 5.9, RBCs 3.46, hemoglobin 10.6, hematocrit is 32, platelet count 169, INR 5.42. Sodium 141, potassium 3.3 , chloride 99, carbon dioxide was 34, anion gap 8, BUN 43, creatinine 1.54, calcium 8.8, lactic acid 1.9, magnesium 1.5. ASTs were 20, ALTs were 11, alkaline phosphatase 97. Troponin was 0.04. C-reactive protein was 17.47. BNP was 789. Urine was within normal limits with the exception of urobilinogen was positive, leukocyte esterase was +1, and rbc's were +1. He had a chest x-ray, radiologist's impression: Bibasilar prominent airspace opacification and small pleural effusions are likely registration representative of CHF; however, focal infiltrate and atelectasis can have similar appearance, similar of cardiomegaly status post aortic valve replacement. He had an electrocardiogram, which showed atrial fibrillation at a rate of 60. ASSESSMENT AND PLAN: Mr. Benites is an 83-year-old male with a past medical history significant for atrial fibrillation, on chronic Coumadin therapy and history of prosthetic aortic valve replacement in 2000, history of diastolic congestive heart failure, hypertension, and chronic kidney disease stage 3, who presented to the emergency room with complaints of cough for 2 days with thick vrxgw-ij-jdhztl secretions. He will be admitted for: 1. Cough. The patient currently denies any associated shortness of breath. He does report a cough with thick secretions. He did have a chest x-ray in the emergency room that was concerning for congestive heart failure with also the possibility of focal infiltrate. Given that the patient has a productive thick cough, decreased saturation, decreased appetite, I will place him on doxycycline and ceftriaxone given the reason macrolides can increase the patient 's INR further, the patient already has an elevated INR of 5.42, so I declined the use of a macrolide antibiotic at this time, he does have an elevated CRP of 17.87 as well, to treat him for pneumonia. I suspect he also has a combination of underlying congestive heart failure. He did receive Lasix 40 mg in the emergency room. I will continue with subsequent dose of 40 mg IV in the a.m. We should reevaluate his fluid status after his subsequent dose of Lasix and continue his Lasix based on fluid status. The patient did have an echo of 10/28, at that time he did have an EF of 55% to 60% with a grade 2 diastolic dysfunction. The patient does follow up with Dr. Neville as an outpatient. We recommended consultation with Dr. Neville. 2. Hypokalemia. I will replete his potassium orally and repeat a BMP in the a.m. 3. Hypomagnesemia. He will receive 4 g of magnesium and I will repeat a mag level in the a.m. 4. Atrial fibrillation. The patient should continue on metoprolol 25 mg p.o. daily as previously prescribed. I am going to hold his Coumadin as he has a supratherapeutic INR of 5.42. We will repeat an INR in the a.m. 5. Hypertension. He should continue on metoprolol as previously prescribed. 6. Gastroesophageal reflux disease. He should continue on omeprazole as previously prescribed. 7. Hypothyroid. He should continue on Synthroid 25 mcg p.o. daily. 8. Depression/anxiety. He should continue on Zoloft as previously prescribed. 9. Supratherapeutic INR. The patient does have an INR of 5.42. I am going to hold his Coumadin . I will repeat an INR in the a.m. We will resume his Coumadin when his INR is below 3. 10. Elevated troponin. The patient does have a troponin of 0.04. He denies any chest pain or associated shortness of breath. I suspect that this elevated troponin is related to demand ischemia. He has a chronically elevated troponin in the past at 0.04. We will continue to monitor him on telemetry and assess for any episodes of chest pain. If the patient does feel chest pain, we will repeat an EKG and repeat troponin at that time. 11. FEN: He can have a heart healthy, caffeine okay diet. 12. Code status. He is a full code. 13. DVT prophylaxis: He has a supratherapeutic INR at this time. He is currently on Coumadin. I will hold his Coumadin. I will not place him SCDs as the patient does have an exacerbation of congestive heart failure at this time and currently has swelling to bilateral lower extremities, so contraindication of use for SCDs at this time. TIME SPENT: Time spent on this admission was 60 minutes, greater than half that time was spent at the bedside reviewing events leading thus far to his hospitalization, performing physical exam, and reviewing my plan of care. I have discussed this with my attending, Dr. Amara Earl; she is in agreement with my plan. JORDIN PARRA, PHARMACY TECHNICIAN TRAINEE [id number]/[facility] #: [id number] YUMI
[2019-04-06] MEDS ORDERED: Furosemide IV* 10 MG/ML VIAL (40 MG) IV ONE (06:00)
[2019-04-06] MEDS: Levothyroxine TAB* 25 MCG TAB PO SCH (06:04)
[2019-04-06 07:30] LABS: INR 4.27 (0.82-1.09)
[2019-04-06 07:37] LABS: ABS Eosinophils 0.1 10^3/ul (0-0.6); ABS Lymphocytes 0.6 10^3/ul (1.0-4.8); ABS Monocytes 0.7 10^3/ul (0-0.8); ABS Neutrophils 3.2 10^3/ul (1.5-7.7); Eosinophil % 2.3 %; Hematocrit 32 % (42-52); Hemoglobin 10.6 g/dL (14.0-18.0); Lymphocyte % 13.1 %; Mean Corpuscular HGB Conc 34 g/dL (31-36); Mean Corpuscular Hemoglobin 30 pg (27-31); Mean Corpuscular Volume 91 fL (80-94); Mean Platelet Volume 8.1 fL (7.4-10.4); Platelet Count 151 10^3/uL (150-450); Red Cell Distribution Width 16 % (10-15); White Blood Count 4.6 10^3/uL (3.5-10.8)
[2019-04-06 07:49] LABS: BUN/Creatinine Ratio 26.5 (8-20); Calcium 9.2 mg/dL (8.6-10.3); EGFR African American 53.7 (>60); EGFR Non-African American 44.4 (>60); Magnesium 2.6 mg/dL (1.9-2.7); Potassium 3.6 mmol/L (3.5-5.0)
[2019-04-06] MEDS: Montelukast Sodium TAB* 10 MG PO SCH (08:57)
[2019-04-06] MEDS: Pantoprazole TAB * 40 MG TAB PO SCH (08:58)
[2019-04-06] MEDS: Multivitamins/Minerals TAB PO SCH (08:58)
[2019-04-06] MEDS: Atorvastatin* 10 MG TAB PO SCH (08:59)
[2019-04-06] MEDS: Sertraline* 25 MG TAB PO SCH (08:59)
[2019-04-06] MEDS: Metoprolol Succinate XL TAB* 25 MG PO SCH (09:01)
[2019-04-06] MEDS: Fluticasone NASAL SPRAY 50MCG* 16 gm SPRAY BTL BOTH NARES SCH (09:09)
--- NOTE | 2019-04-06 14:02 | PN ---
Subjective Date of Service: 04/06/19 Interval History: Patient seen and examined. No acute overnight events. Patient very ANDRE[place]KI, denies acute SOB, remains on O2 with cough. No pain or fevers, no chest pain. Objective Active Medications: Acetaminophen (Tylenol Tab*) 650 mg PO Q4H PRN PRN Reason: MILD PAIN or TEMP > 100.4 Alprazolam (Xanax Tab*) 0.25 mg PO DAILY PRN PRN Reason: ANXIETY Last Admin: 04/06/19 00:01 Dose: 0.25 mg Atorvastatin Calcium (Lipitor*) 10 mg PO DAILY [facility] Last Admin: 04/06/19 08:59 Dose: 10 mg Cetirizine HCl (Zyrtec*) 10 mg PO QPM [facility] Fluticasone Propionate (Flonase Nasal [place] 50mcg*) 2 spray BOTH NARES DAILY [facility] Last Admin: 04/06/19 09:09 Dose: 2 spray Furosemide (Lasix Iv*) 40 mg IV DAILY [facility] Doxycycline Hyclate 100 mg/ (Sodium Chloride) 250 mls @ 250 mls/hr IVPB Q12H [facility] Ceftriaxone Sodium 1 gm/ (Sodium Chloride) 50 mls @ 100 mls/hr IVPB Q24H [facility] Last Admin: 04/05/19 19:10 Dose: 100 mls/hr Levothyroxine Sodium (Synthroid Tab*) 25 mcg PO DAILY@0600 [facility] Last Admin: 04/06/19 06:04 Dose: 25 mcg Metoprolol Succinate (Toprol Xl Tab*) 25 mg PO DAILY [facility] Last Admin: 04/06/19 09:01 Dose: Not Given Montelukast Sodium (Singulair Tab*) 10 mg PO DAILY [facility] Last Admin: 04/06/19 08:57 Dose: 10 mg Multivitamins/Minerals (Theragran/Minerals Tab*) 1 tab PO DAILY [facility] Last Admin: 04/06/19 08:58 Dose: 1 tab Nystatin (Nystatin Top Powder*) 1 applic TOPICAL BID [facility] Last Admin: 04/06/19 09:07 Dose: 1 applic Pantoprazole Sodium (Protonix Tab*) 40 mg PO DAILY [facility] Last Admin: 04/06/19 08:58 Dose: 40 mg Sertraline HCl (Zoloft*) 25 mg PO DAILY [facility] Last Admin: 04/06/19 08:59 Dose: 25 mg Vital Signs - 8 hr 04/06/19 04/06/19 07:15 12:05 Temperature 97.5 F 96.4 F Pulse Rate 56 55 Respiratory 16 14 Rate Blood Pressure 132/51 150/45 (mmHg) O2 Sat by Pulse 90 95 Oximetry Oxygen Devices in Use Now: None, Nasal Cannula Appearance: alert, NAD Eyes: PERRLA Ears/Nose/Mouth/Throat: Mucous Membranes Moist Neck: NL Appearance and Movements; NL JVP, Trachea Midline Respiratory: - - bilateral rales Cardiovascular: NL Sounds; No Murmurs; No JVD, RRR Extremities: No Clubbing, Cyanosis, - - bipedal pitting edema Skin: No Rash or Ulcers Neurological: Alert and Oriented x 3 Nutrition: Taking PO's Result Diagrams: 04/06/19 06:09 04/06/19 06:09 Additional Lab and Data: Lab Results 04/05/19 04/05/19 04/05/19 Range/Units 14:08 14:08 14:08 WBC 5.9 (3.5-10.8) 10^3/uL RBC 3.46 L (4.18-5.48) 10^6 /uL Hgb 10.6 L (14.0-18.0) g/dL Hct 32 L (42-52) % MCV 91 (80-94) fL MCH 31 (27-31) pg MCHC 34 (31-36) g/dL RDW 16 H (10-15) % Plt Count 169 (150-450) 10^3/uL MPV 8.0 (7.4-10.4) fL Neut % (Auto) 78.3 % Lymph % (Auto) 8.3 % Faulk % (Auto) 11.2 % Eos % (Auto) 1.6 % Baso % (Auto) 0.6 % Absolute Neuts (auto) 4.6 (1.5-7.7) 10^3/ul Absolute Lymphs (auto) 0.5 L (1.0-4.8) 10^3/ul Absolute Monos (auto) 0.7 (0-0.8) 10^3/ul Absolute Eos (auto) 0.1 (0-0.6) 10^3/ul Absolute Basos (auto) 0.0 (0-0.2) 10^3/ul Absolute Nucleated RBC 0.0 10^3/ul Nucleated RBC % 0.1 INR (Anticoag Therapy) (0.82-1.09) APTT (26.0-38.0) seconds Sodium 141 (135-145) mmol/L Potassium 3.3 L (3.5-5.0) mmol/L Chloride 99 L (101-111) mmol/L Carbon Dioxide 34 H (22-32) mmol/L Anion Gap 8 (2-11) mmol/L BUN 43 H (6-24) mg/dL Creatinine 1.54 H (0.67-1.17) mg/dL Est GFR ( Amer) 52.5 (>60) Est GFR (Non-Af Amer) 43.4 (>60) BUN/Creatinine Ratio 27.9 H (8-20) Glucose 104 H (70-100) mg/dL Lactic Acid 1.9 (0.5-2.0) mmol/L Calcium 8.8 (8.6-10.3) mg/dL Total Bilirubin 0.90 (0.2-1.0) mg/dL AST 20 (13-39) U/L ALT 11 (7-52) U/L Alkaline Phosphatase 97 (34-104) U/L Total Creatine Kinase 19 (10-223) U/L CK-MB (CK-2) 1.4 (0.6-6.3) ng/mL Troponin I 0.04 H* (<0.04) ng/mL C-Reactive Protein 17.47 H (<8.01) mg/L B-Natriuretic Peptide (<=100) pg/mL Total Protein 7.3 (6.4-8.9) g/dL Albumin 3.5 (3.2-5.2) g/dL Globulin 3.8 (2-4) g/dL Albumin/Globulin Ratio 0.9 L (1-3) 04/05/19 04/05/19 Range/Units 14:08 14:08 WBC (3.5-10.8) 10^3/uL RBC (4.18-5.48) 10^6 /uL Hgb (14.0-18.0) g/dL Hct (42-52) % MCV (80-94) fL MCH (27-31) pg MCHC (31-36) g/dL RDW (10-15) % Plt Count (150-450) 10^3/uL MPV (7.4-10.4) fL Neut % (Auto) % Lymph % (Auto) % Faulk % (Auto) % Eos % (Auto) % Baso % (Auto) % Absolute Neuts (auto) (1.5-7.7) 10^3/ul Absolute Lymphs (auto) (1.0-4.8) 10^3/ul Absolute Monos (auto) (0-0.8) 10^3/ul Absolute Eos (auto) (0-0.6) 10^3/ul Absolute Basos (auto) (0-0.2) 10^3/ul Absolute Nucleated RBC 10^3/ul Nucleated RBC % INR (Anticoag Therapy) 5.42 H* (0.82-1.09) APTT 48.8 H (26.0-38.0) seconds Sodium (135-145) mmol/L Potassium (3.5-5.0) mmol/L Chloride (101-111) mmol/L Carbon Dioxide (22-32) mmol/L Anion Gap (2-11) mmol/L BUN (6-24) mg/dL Creatinine (0.67-1.17) mg/dL Est GFR ( Amer) (>60) Est GFR (Non-Af Amer) (>60) BUN/Creatinine Ratio (8-20) Glucose (70-100) mg/dL Lactic Acid (0.5-2.0) mmol/L Calcium (8.6-10.3) mg/dL Total Bilirubin (0.2-1.0) mg/dL AST (13-39) U/L ALT (7-52) U/L Alkaline Phosphatase (34-104) U/L Total Creatine Kinase (10-223) U/L CK-MB (CK-2) (0.6-6.3) ng/mL Troponin I (<0.04) ng/mL C-Reactive Protein (<8.01) mg/L B-Natriuretic Peptide 789 H (<=100) pg/mL Total Protein (6.4-8.9) g/dL Albumin (3.2-5.2) g/dL Globulin (2-4) g/dL Albumin/Globulin Ratio (1-3) Microbiology and Other Data: Microbiology 04/05/19 15:38 Legionella Urinary Antigen - Final Urine Negative Legionella Antigen Streptococcus pneumoniae Ag Screen - Final Negative S. pneumo Antigen Diagnostic Imaging: Patient Name: SANA MONTEIRO Medical Record#: [id number] Ordering Physician: Dominique Villa MD Acct.#: [id number] : 1935 Age: 83 Sex: M Location: EMERGENCY DEPARTMENT Exam Date: 04/05/19 1322 ADM Status: PRE ER Order Information: CHEST PA & LAT 2 VWS Accession Number: [id number] CPT: 51479 INDICATION: Shortness of breath and cough COMPARISON: July 22, 2018 chest radiograph TECHNIQUE: Dual-energy PA and lateral views of the chest were obtained. FINDINGS: There is bibasilar predominant airspace opacification with small bilateral pleural effusions. There is similar cardiomegaly status post midline sternotomy and aVR. The upper abdominal contents are normal. Osseous structures are unremarkable. IMPRESSION: 1. Bibasilar predominant airspace opacification and small pleural effusions are likely in store marketing representative of CHF; however, focal infiltrate and atelectasis can have similar appearance. 2. Similar cardiomegaly status post aVR. Assess/Plan/Problems-Billing Assessment: This is an 83 year old male iwth hx of AVR, CKD and afib that presents to ED with complaints of cough and increasing SOB, found to have CAP and exacerbation of HF with supratherapeutic INR. - Patient Problems (1) Pneumonia Code(s): J18.9 - PNEUMONIA, UNSPECIFIED ORGANISM SNOMED Code(s): 000247792 Comment: - With productive cough and focal consolidation on chest xray with mixed HF - Continue ceftriaxone and doxy to cover for CAP - Monitor temps and white count - Pending sputum culture (2) Diastolic heart failure Code(s): I50.30 - UNSPECIFIED DIASTOLIC (CONGESTIVE) HEART FAILURE SNOMED Code (s): 764958957 Comment: - Grade 2 diastolic dysfunction on ECHO from October 2018 - Responding well to lasix, will continue IV daily until euvolemic - Monitor I&Os and daily weights - Continue BB (3) Supratherapeutic INR Code(s): R79.1 - ABNORMAL COAGULATION PROFILE SNOMED Code(s): 170718396 Comment: - On coumadin for afib and AVR with INR of 5.42 at admission - Hold coumadin and follow INRs until below 3 then restart (4) Demand ischemia Code(s): I24.8 - OTHER FORMS OF ACUTE ISCHEMIC HEART DISEASE SNOMED Code(s): 307395005 Comment: - In presence of SOB and desats - Slight bump in trop to 0.04, no chest pain, no EKG changes (5) Dysphagia Code(s): R13.10 - DYSPHAGIA, UNSPECIFIED SNOMED Code(s): 95835346 Comment: - Some modified diet at home per record, not unrealistic that some of his issues are related to aspiration? - Speech consulted, recommends mechanical soft with nectar thick liquids (6) Atrial fibrillation Code(s): I48.91 - UNSPECIFIED ATRIAL FIBRILLATION SNOMED Code(s): 06353835 Comment: - Junctional vs afib with slow rate overnight (30s while sleeping) - Rate in 50s today, may need to down titrate BB tomorrow - Continue tele (7) CKD (chronic kidney disease) Code(s): N18.9 - CHRONIC KIDNEY DISEASE, UNSPECIFIED SNOMED Code(s): 457027462 Comment: - Creat at baseline, monitor while diuresing (8) Aortic valve replaced Code(s): Z95.2 - PRESENCE OF PROSTHETIC HEART VALVE SNOMED Code(s): 3159679299068 Comment: - On coumadin, being held for supratherapeutic INR (9) Electrolyte abnormality Code(s): E87.8 - OTH DISORDERS OF ELECTROLYTE AND FLUID BALANCE, NEC SNOMED Code(s): 056014523 Comment: - K and Mg repleted, continue to monitor (10) DVT prophylaxis Code(s): Z29.9 - ENCOUNTER FOR PROPHYLACTIC MEASURES, UNSPECIFIED SNOMED Code( s): 095648236 Comment: - SCDs, restart coumadin when INR drifts down to therapeutic range (11) Full code status Code(s): Z78.9 - OTHER SPECIFIED HEALTH STATUS SNOMED Code(s): 883677016 Status and Disposition: Inpatient, dispo TBD.
[2019-04-06] MEDS ORDERED: Saline NASAL SPRAY 0.65%* BTL BOTH NARES PRN (17:38)
[2019-04-06] MEDS: Cetirizine* 10 MG TAB PO SCH (18:15)
[2019-04-06] MEDS: cefTRIAXone(*) 1 GM in NS 0.9% 50 ML* 50 ML IVPB SCH (18:17)
[2019-04-06] MEDS: DOXYcycline IV* 100 MG in NS 0.9% 250 ML* 250 ML IVPB SCH (20:19)
[2019-04-07] MEDS: Levothyroxine TAB* 25 MCG TAB PO SCH (05:52)
[2019-04-07 08:39] LABS: INR 4.19 (0.82-1.09)
[2019-04-07 08:47] LABS: BUN/Creatinine Ratio 23.8 (8-20); Calcium 9.3 mg/dL (8.6-10.3); EGFR African American 57.1 (>60); EGFR Non-African American 47.2 (>60); Potassium 3.4 mmol/L (3.5-5.0)
[2019-04-07] MEDS ORDERED: Influenza VAC *QUAD* 2019-20* 0.5 ML SYRINGE IM ONE (09:00)
[2019-04-07] MEDS ORDERED: Furosemide IV* 10 MG/ML VIAL (40 MG) IV SCH (09:00)
[2019-04-07] MEDS ORDERED: NS 0.9% 250 ML* 250 ML ONE (09:24)
[2019-04-07] MEDS: Montelukast Sodium TAB* 10 MG PO SCH (09:36)
[2019-04-07] MEDS: Metoprolol Succinate XL TAB* 25 MG PO SCH (09:36)
[2019-04-07] MEDS: Pantoprazole TAB * 40 MG TAB PO SCH (09:37)
[2019-04-07] MEDS: Atorvastatin* 10 MG TAB PO SCH (09:37)
[2019-04-07] MEDS: DOXYcycline IV* 100 MG in NS 0.9% 250 ML* 250 ML IVPB SCH ×2 (09:37→22:18)
[2019-04-07] MEDS: Sertraline* 25 MG TAB PO SCH (09:37)
[2019-04-07] MEDS: Multivitamins/Minerals TAB PO SCH (09:37)
[2019-04-07] MEDS: Fluticasone NASAL SPRAY 50MCG* 16 gm SPRAY BTL BOTH NARES SCH (10:03)
[2019-04-07] MEDS: Nystatin TOP POWDER* 15 GM BTL TOPICAL SCH ×2 (10:04→22:19)
[2019-04-07] MEDS ORDERED: Potassium Chlor TAB* 20 MEQ TAB.ER PO ONE (10:42)
--- NOTE | 2019-04-07 12:05 | PN ---
Subjective Date of Service: 04/07/19 Interval History: Patient feels improved. Still has cough which is productive, but is less frequent. Denies fever/chills, difficulty breathing, chest pain, abd pain. Patient has been saturating well on room air at rest but oxygen saturation with ambulation was 83%. On 1L O2 his saturation with ambulation was 87%. Objective Active Medications: Acetaminophen (Tylenol Tab*) 650 mg PO Q4H PRN PRN Reason: MILD PAIN or TEMP > 100.4 Alprazolam (Xanax Tab*) 0.25 mg PO DAILY PRN PRN Reason: ANXIETY Last Admin: 04/06/19 20:19 Dose: 0.25 mg Atorvastatin Calcium (Lipitor*) 10 mg PO DAILY [facility] Last Admin: 04/07/19 09:37 Dose: 10 mg Cetirizine HCl (Zyrtec*) 10 mg PO QPM [facility] Last Admin: 04/06/19 18:15 Dose: 10 mg Fluticasone Propionate (Flonase Nasal Fonda 50mcg*) 2 spray BOTH NARES DAILY [facility] Last Admin: 04/07/19 10:03 Dose: 2 spray Furosemide (Lasix Iv*) 40 mg IV DAILY [facility] Last Admin: 04/07/19 09:37 Dose: 40 mg Doxycycline Hyclate 100 mg/ (Sodium Chloride) 250 mls @ 250 mls/hr IVPB Q12H [facility] Last Admin: 04/07/19 09:37 Dose: 250 mls/hr Ceftriaxone Sodium 1 gm/ (Sodium Chloride) 50 mls @ 100 mls/hr IVPB Q24H [facility] Last Admin: 04/06/19 18:17 Dose: 100 mls/hr Levothyroxine Sodium (Synthroid Tab*) 25 mcg PO DAILY@0600 [facility] Last Admin: 04/07/19 05:52 Dose: 25 mcg Metoprolol Succinate (Toprol Xl Tab*) 25 mg PO DAILY [facility] Last Admin: 04/07/19 09:36 Dose: 25 mg Montelukast Sodium (Singulair Tab*) 10 mg PO DAILY [facility] Last Admin: 04/07/19 09:36 Dose: 10 mg Multivitamins/Minerals (Theragran/Minerals Tab*) 1 tab PO DAILY [facility] Last Admin: 04/07/19 09:37 Dose: 1 tab Nystatin (Nystatin Top Powder*) 1 applic TOPICAL BID [facility] Last Admin: 04/07/19 10:04 Dose: 1 applic Pantoprazole Sodium (Protonix Tab*) 40 mg PO DAILY [facility] Last Admin: 04/07/19 09:37 Dose: 40 mg Sertraline HCl (Zoloft*) 25 mg PO DAILY [facility] Last Admin: 04/07/19 09:37 Dose: 25 mg Sodium Chloride (Sodium Chloride 0.65% Nasal Fonda*) 1 spray BOTH NARES Q4H PRN PRN Reason: CONGESTION Last Admin: 04/07/19 02:29 Dose: 1 spray Vital Signs - 8 hr 04/07/19 04/07/19 07:15 10:19 Temperature 97.3 F Pulse Rate 55 Respiratory 20 Rate Blood Pressure 146/45 (mmHg) O2 Sat by Pulse 96 83 Oximetry Oxygen Devices in Use Now: None Appearance: Elderly white male, reclining in chair, appearing in NAD Eyes: No Scleral Icterus, PERRLA Ears/Nose/Mouth/Throat: Mucous Membranes Moist Neck: NL Appearance and Movements; NL JVP Respiratory: Symmetrical Chest Expansion and Respiratory Effort, Clear to Auscultation Cardiovascular: NL Sounds; No Murmurs; No JVD, RRR Abdominal: - - abd soft, nontender, nondistended Extremities: No Clubbing, Cyanosis, - - trace nonpitting pedal edema Skin: No Rash or Ulcers Neurological: Alert and Oriented x 3, NL Muscle Strength and Tone, - - hard of hearing Result Diagrams: 04/06/19 06:09 04/07/19 08:13 Additional Lab and Data: Lab Results 04/05/19 04/05/19 04/05/19 Range/Units 14:08 14:08 14:08 WBC 5.9 (3.5-10.8) 10^3/uL RBC 3.46 L (4.18-5.48) 10^6 /uL Hgb 10.6 L (14.0-18.0) g/dL Hct 32 L (42-52) % MCV 91 (80-94) fL MCH 31 (27-31) pg MCHC 34 (31-36) g/dL RDW 16 H (10-15) % Plt Count 169 (150-450) 10^3/uL MPV 8.0 (7.4-10.4) fL Neut % (Auto) 78.3 % Lymph % (Auto) 8.3 % [place] % (Auto) 11.2 % Eos % (Auto) 1.6 % Baso % (Auto) 0.6 % Absolute Neuts (auto) 4.6 (1.5-7.7) 10^3/ul Absolute Lymphs (auto) 0.5 L (1.0-4.8) 10^3/ul Absolute Monos (auto) 0.7 (0-0.8) 10^3/ul Absolute Eos (auto) 0.1 (0-0.6) 10^3/ul Absolute Basos (auto) 0.0 (0-0.2) 10^3/ul Absolute Nucleated RBC 0.0 10^3/ul Nucleated RBC % 0.1 INR (Anticoag Therapy) (0.82-1.09) APTT (26.0-38.0) seconds Sodium 141 (135-145) mmol/L Potassium 3.3 L (3.5-5.0) mmol/L Chloride 99 L (101-111) mmol/L Carbon Dioxide 34 H (22-32) mmol/L Anion Gap 8 (2-11) mmol/L BUN 43 H (6-24) mg/dL Creatinine 1.54 H (0.67-1.17) mg/dL Est GFR ( Amer) 52.5 (>60) Est GFR (Non-Af Amer) 43.4 (>60) BUN/Creatinine Ratio 27.9 H (8-20) Glucose 104 H (70-100) mg/dL Lactic Acid 1.9 (0.5-2.0) mmol/L Calcium 8.8 (8.6-10.3) mg/dL Total Bilirubin 0.90 (0.2-1.0) mg/dL AST 20 (13-39) U/L ALT 11 (7-52) U/L Alkaline Phosphatase 97 (34-104) U/L Total Creatine Kinase 19 (10-223) U/L CK-MB (CK-2) 1.4 (0.6-6.3) ng/mL Troponin I 0.04 H* (<0.04) ng/mL C-Reactive Protein 17.47 H (<8.01) mg/L B-Natriuretic Peptide (<=100) pg/mL Total Protein 7.3 (6.4-8.9) g/dL Albumin 3.5 (3.2-5.2) g/dL Globulin 3.8 (2-4) g/dL Albumin/Globulin Ratio 0.9 L (1-3) 04/05/19 04/05/19 Range/Units 14:08 14:08 WBC (3.5-10.8) 10^3/uL RBC (4.18-5.48) 10^6 /uL Hgb (14.0-18.0) g/dL Hct (42-52) % MCV (80-94) fL MCH (27-31) pg MCHC (31-36) g/dL RDW (10-15) % Plt Count (150-450) 10^3/uL MPV (7.4-10.4) fL Neut % (Auto) % Lymph % (Auto) % [place] % (Auto) % Eos % (Auto) % Baso % (Auto) % Absolute Neuts (auto) (1.5-7.7) 10^3/ul Absolute Lymphs (auto) (1.0-4.8) 10^3/ul Absolute Monos (auto) (0-0.8) 10^3/ul Absolute Eos (auto) (0-0.6) 10^3/ul Absolute Basos (auto) (0-0.2) 10^3/ul Absolute Nucleated RBC 10^3/ul Nucleated RBC % INR (Anticoag Therapy) 5.42 H* (0.82-1.09) APTT 48.8 H (26.0-38.0) seconds Sodium (135-145) mmol/L Potassium (3.5-5.0) mmol/L Chloride (101-111) mmol/L Carbon Dioxide (22-32) mmol/L Anion Gap (2-11) mmol/L BUN (6-24) mg/dL Creatinine (0.67-1.17) mg/dL Est GFR ( Amer) (>60) Est GFR (Non-Af Amer) (>60) BUN/Creatinine Ratio (8-20) Glucose (70-100) mg/dL Lactic Acid (0.5-2.0) mmol/L Calcium (8.6-10.3) mg/dL Total Bilirubin (0.2-1.0) mg/dL AST (13-39) U/L ALT (7-52) U/L Alkaline Phosphatase (34-104) U/L Total Creatine Kinase (10-223) U/L CK-MB (CK-2) (0.6-6.3) ng/mL Troponin I (<0.04) ng/mL C-Reactive Protein (<8.01) mg/L B-Natriuretic Peptide 789 H (<=100) pg/mL Total Protein (6.4-8.9) g/dL Albumin (3.2-5.2) g/dL Globulin (2-4) g/dL Albumin/Globulin Ratio (1-3) Microbiology and Other Data: Microbiology 04/05/19 15:38 Legionella Urinary Antigen - Final Urine Negative Legionella Antigen Streptococcus pneumoniae Ag Screen - Final Negative S. pneumo Antigen Diagnostic Imaging: Patient Name: SANA MONTEIRO Medical Record#: [id number] Ordering Physician: Dominique Villa MD Acct.#: [id number] : 1935 Age: 83 Sex: M Location: EMERGENCY DEPARTMENT Exam Date: 04/05/19 1322 ADM Status: PRE ER Order Information: CHEST PA & LAT 2 VWS Accession Number: [id number] CPT: 50465 INDICATION: Shortness of breath and cough COMPARISON: July 22, 2018 chest radiograph TECHNIQUE: Dual-energy PA and lateral views of the chest were obtained. FINDINGS: There is bibasilar predominant airspace opacification with small bilateral pleural effusions. There is similar cardiomegaly status post midline sternotomy and aVR. The upper abdominal contents are normal. Osseous structures are unremarkable. IMPRESSION: 1. Bibasilar predominant airspace opacification and small pleural effusions are likely business center representative of CHF; however, focal infiltrate and atelectasis can have similar appearance. 2. Similar cardiomegaly status post aVR. Assess/Plan/Problems-Billing Assessment: This is an 83 year old male iwth hx of bioprosthetic AVR, CKD, and afib that presents to ED with complaints of cough and increasing SOB, found to have CAP and exacerbation of HF with supratherapeutic INR. - Patient Problems (1) Acute respiratory failure with hypoxia Current Visit: Yes Status: Acute Code(s): J96.01 - ACUTE RESPIRATORY FAILURE WITH HYPOXIA SNOMED Code(s): 26697450 Comment: -O2 sat to 85% on date of admission -likely related to combination of CHF decompensation as well as possible pneumonia -good saturations on RA but would need at least 2 L with ambulation -would likely benefit from further diuresis and IV abx as patient is on room air at home (2) Diastolic heart failure Current Visit: Yes Status: Acute Code(s): I50.30 - UNSPECIFIED DIASTOLIC ( CONGESTIVE) HEART FAILURE SNOMED Code(s): 573153930 Comment: - Grade 2 diastolic dysfunction on ECHO from October 2018 - Approaching euvolemia, very trace pedal edema today but lungs are quite clear - Monitor I&Os and daily weights - Continue metoprolol - Increasing IV lasix to 60mg tomorrow as patient takes lasix 80mg po at home (3) Pneumonia Current Visit: Yes Status: Acute Code(s): J18.9 - PNEUMONIA, UNSPECIFIED ORGANISM SNOMED Code(s): 285893264 Comment: - With productive cough and focal consolidation on chest xray with mixed HF - Continue ceftriaxone and doxy to cover for CAP - Afebrile and no leukocytosis - Pending sputum culture, collected today (4) Hypokalemia Current Visit: Yes Status: Acute Code(s): E87.6 - HYPOKALEMIA SNOMED Code( s): 22786531 Comment: - likely 2/2 diuresis - replacing with po KCl (5) Supratherapeutic INR Current Visit: Yes Status: Acute Code(s): R79.1 - ABNORMAL COAGULATION PROFILE SNOMED Code(s): 666873466 Comment: - On coumadin for afib, with INR of 5.42 at admission - Hold coumadin and follow INRs until below 3 then restart - INR today 4.19 (6) Atrial fibrillation Current Visit: Yes Status: Acute Code(s): I48.91 - UNSPECIFIED ATRIAL FIBRILLATION SNOMED Code(s): 18725316 Comment: - Rate in 50s-60s - Continue tele and metoprolol - Holding coumadin (7) CKD (chronic kidney disease) Current Visit: Yes Status: Acute Code(s): N18.9 - CHRONIC KIDNEY DISEASE, UNSPECIFIED SNOMED Code(s): 274735114 Comment: - Creat at baseline, monitor while diuresing - BUN/Creat actually went down today which means patient would likely tolerate more diuresis (8) Elevated troponin Current Visit: Yes Status: Acute Code(s): R74.8 - ABNORMAL LEVELS OF OTHER SERUM ENZYMES SNOMED Code(s): 060430917 Comment: -chronically elevated to 0.04, likely due to CKD -will repeat (9) DVT prophylaxis Current Visit: Yes Status: Acute Code(s): Z29.9 - ENCOUNTER FOR PROPHYLACTIC MEASURES, UNSPECIFIED SNOMED Code(s): 996150396 Comment: - SCDs, restart coumadin when INR drifts down to therapeutic range (10) Full code status Current Visit: Yes Status: Acute Code(s): Z78.9 - OTHER SPECIFIED HEALTH STATUS SNOMED Code(s): 732552311 Status and Disposition: Inpatient, dispo TBD.
[2019-04-07] MEDS: ALPRAZolam TAB* 0.25 MG PO PRN (12:27)
[2019-04-07] MEDS: Cetirizine* 10 MG TAB PO SCH (18:36)
[2019-04-07] MEDS: cefTRIAXone(*) 1 GM in NS 0.9% 50 ML* 50 ML IVPB SCH (18:37)
[2019-04-08] MEDS: Levothyroxine TAB* 25 MCG TAB PO SCH (05:24)
[2019-04-08 06:45] LABS: INR 3.87 (0.82-1.09)
[2019-04-08 06:54] LABS: Calcium 8.9 mg/dL (8.6-10.3); EGFR African American 61.1 (>60); EGFR Non-African American 50.5 (>60); Potassium 3.4 mmol/L (3.5-5.0)
[2019-04-08 07:03] LABS: Troponin I 0.09 ng/mL (<0.04)
[2019-04-08] MEDS ORDERED: NS 0.9% 250 ML* 250 ML ONE (08:45)
[2019-04-08 08:54] LABS: Magnesium 1.8 mg/dL (1.9-2.7)
[2019-04-08] MEDS: DOXYcycline IV* 100 MG in NS 0.9% 250 ML* 250 ML IVPB SCH (09:00)
[2019-04-08] MEDS: Atorvastatin* 10 MG TAB PO SCH (09:00)
[2019-04-08] MEDS: Sertraline* 25 MG TAB PO SCH (09:00)
[2019-04-08] MEDS ORDERED: Furosemide IV* 10 MG/ML VIAL (40 MG) IV SCH (09:00)
[2019-04-08] MEDS: Pantoprazole TAB * 40 MG TAB PO SCH (09:00)
[2019-04-08] MEDS: Montelukast Sodium TAB* 10 MG PO SCH (09:00)
[2019-04-08] MEDS: Multivitamins/Minerals TAB PO SCH (09:00)
[2019-04-08] MEDS ORDERED: Metoprolol Succinate XL TAB* 25 MG PO SCH (09:00)
[2019-04-08] MEDS: Fluticasone NASAL SPRAY 50MCG* 16 gm SPRAY BTL BOTH NARES SCH (09:01)
[2019-04-08] MEDS ORDERED: Magnesium Oxide TAB* 400 MG PO ONE (09:02)
[2019-04-08] MEDS ORDERED: Potassium Chlor TAB* 20 MEQ TAB.ER PO ONE (09:02)
[2019-04-08] MEDS: Nystatin TOP POWDER* 15 GM BTL TOPICAL SCH (09:03)
[2019-04-08 10:39] LABS: Troponin I 0.07 ng/mL (<0.04)
[2019-04-08 16:01] VITALS: BP 143/45
--- NOTE | 2019-04-08 23:20 | DS ---
CC: Dr. Jf Powell * DISCHARGE SUMMARY: DATE OF ADMISSION: 04/05/19 DATE OF DISCHARGE: 04/08/19 PRIMARY CARE PROVIDER: Dr. Jf Powell. ATTENDING PHYSICIAN: Dr. Earle Acosta * (dictated by Jamaica Jacobsen NP). PRIMARY DIAGNOSES: 1. Acute on chronic hypoxic respiratory failure. 2. Acute on chronic diastolic congestive heart failure. 3. Community-acquired pneumonia. 4. Hypokalemia. 5. Supratherapeutic INR. SECONDARY DIAGNOSES: 1. Atrial fibrillation. 2. Chronic kidney disease, stage 3. STUDIES WHILE IN THE HOSPITAL: 1. 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 Similar cardiomegaly, status post AVR. 2. EKG on 04/05/19, shows atrial fibrillation with a rate of 60, right bundle- branch block. No ST changes. 3. EKG on 04/06/19, shows atrial fibrillation with a rate of 53, multiple PVCs , no ST changes. 4. EKG on 04/08/19, shows atrial fibrillation with a rate of 57, right bundle- branch block. No ST changes. HISTORY OF PRESENT ILLNESS AND HOSPITAL COURSE: Mr. Benites is an 83-year-old male with past medical history of AFib, diastolic congestive heart failure, hypertension and chronic kidney disease, who presented to the emergency room on 04/05/19, with complaints of cough. Please see the history and physical by Radha Parra NP for a complete summary of the events leading up to this hospitalization. In short, the patient reported decreased appetite and a productive cough with white to green sputum. In the emergency room, he had imaging as noted above. He was noted to have an elevated CRP and a mildly elevated troponin. INR was 5.42. Because of the concern for his respiratory status, he was admitted by the hospitalist service. The patient required 2 L of oxygen to maintain saturations in the 90s. He was diuresed with IV furosemide. Echocardiogram was not repeated as the patient did have an echocardiogram in October 2018. He was started on antibiotics because of a concern for community-acquired pneumonia. He was seen by Speech Therapy because of concern for aspiration, and Speech Therapy recommended mechanical ground texture and nectar thick liquids. The patient was gradually diuresed, as of yesterday, 04/07/19, he was still requiring oxygen with ambulation and so he remained in the hospital another night. As of today, the patient is off oxygen at rest and maintaining saturations in the mid 90s with ambulation on room air. The patient did have an elevated troponin on admission at 0.04. This was repeated today earlier this morning and was noted to be 0.09 and repeated again later this morning and was 0.07. 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 The patient reports feeling well today. He offers no complaints. He denies shortness of breath or cough. He is very hard of hearing, so difficult to obtain much more information from the patient. PHYSICAL EXAMINATION: On exam, he has no focal neurological deficits. He is alert and oriented. His heart is irregular without murmurs, rubs, or gallops. Lungs are clear to auscultation without rhonchi, wheezes, or rubs. There is trace lower extremity edema. Physical exam is otherwise benign. Mr. Benites is stable for discharge today. Vital signs are as follows: Temp 97.6, heart rate 53, respiratory rate 20, oxygen saturation 94% on room air, blood pressure 124/92. DISCHARGE MEDICATIONS: New medications: 1. Cefdinir 300 mg p.o. b.i.d. x4 days. 2. Doxycycline 100 mg p.o. b.i.d. x4 days. Changed medication: 1. Metoprolol succinate 12.5 mg p.o. daily (previously was 25 mg p.o. daily). Continued medications: 1. Alprazolam 0.25 mg p.o. daily p.r.n. anxiety. 2. Atorvastatin 10 mg p.o. daily. 3. Fluticasone 2 sprays both nares daily. 4. Levothyroxine 25 mcg p.o. daily. 5. Loratadine 10 mg p.o. daily. 6. Singulair 10 mg p.o. daily. 7. Multivitamin 1 tab p.o. daily. 8. Nystatin 1 application topically b.i.d. 9. Omeprazole 20 mg p.o. daily. 10. Sertraline 25 mg p.o. daily. 11. Furosemide 80 mg p.o. daily. 12. Metolazone 12.5 mg p.o. weekly. Discontinued medication: 1. Warfarin. DISCHARGE PLAN: Mr. Benites will be discharged home in the care of his . Activity will be as tolerated. Diet will be heart-healthy. Medications are noted above. The patient will need to complete 4 days of cefdinir and doxycycline to complete a total of 7 days of antibiotic therapy for his community-acquired pneumonia. His metoprolol dosing has been decreased due to some bradycardia noted this morning. INR this morning was noted to still be elevated at 3.87 and so the patient should not take any warfarin today. I have provided the patient with an order slip to have an INR drawn tomorrow and have indicated that those results should be sent to Dr. Powell's office. The patient's is aware that she should touch base with the on-call provider at Dr. Powell's office tomorrow to determine further instructions on Coumadin dosing. He can continue his other usual medications as noted above. Per Speech Therapy recommendations, he will need to be maintained on a mechanical ground diet with nectar thick liquids and this was reviewed with the patient's . The patient will need to follow up with his PCP in the next 4 to 7 days. He has been advised to return to the emergency room or nearest hospital for any worsening of symptoms, shortness of breath, lightheadedness, dizziness, chest discomfort, high fevers, chills, night sweats, loss of consciousness, or any other worrisome signs or symptoms. DISCHARGE CONDITION: Stable. DISCHARGE DISPOSITION: Home. This is a summarized report of a complex medical history and hospital stay. For further details, please see the entire medical record. TIME SPENT: Approximately 50 minutes were spent on this discharge. JAMAICA JACOBSEN, DIRECTOR OF [employer] [id number]/[facility] #: [id number] YUMI
== END 2019-04-08 16:33 | disposition home or self-care (01) | DRG 291 ==
LOC: ED 13:06 → MEDTELE 20:47 → OBSVTOIN 04-06 11:00
PROVIDERS: ADMIT Nurse Practitioner; ATTEND Internal Medicine
DX: I13.0 Hypertensive heart and chronic kidney disease with heart failure and stage 1 through stage 4 chronic kidney disease, or unspecified chronic kidney disease (principal); I50.33 Acute on chronic diastolic (congestive) heart failure; J18.9 Pneumonia, unspecified organism; J96.21 Acute and chronic respiratory failure with hypoxia; I24.8 Other forms of acute ischemic heart disease; I48.91 Unspecified atrial fibrillation; E78.00 Pure hypercholesterolemia, unspecified; F41.9 Anxiety disorder, unspecified; N18.3 Chronic kidney disease, stage 3 (moderate); M19.90 Unspecified osteoarthritis, unspecified site; H91.90 Unspecified hearing loss, unspecified ear; E87.6 Hypokalemia; E83.42 Hypomagnesemia; K21.9 Gastro-esophageal reflux disease without esophagitis; I45.10 Unspecified right bundle-branch block; F31.9 Bipolar disorder, unspecified; R13.10 Dysphagia, unspecified; R79.1 Abnormal coagulation profile; Z80.0 Family history of malignant neoplasm of digestive organs; Z95.2 Presence of prosthetic heart valve; Z90.49 Acquired absence of other specified parts of digestive tract; Z87.891 Personal history of nicotine dependence; Z72.89 Other problems related to lifestyle; Z23 Encounter for immunization
CPT/HCPCS: 36415; 71046; 80048; 80053; 81003; 81015; 82550; 82553; 83605; 83735; 83880; 84484; 85025; 85610; 85730; 86140; 87040; 87070; 87077; 87086; 87186; 87205; 87899; 90471; 90686; 93005; 96365; 96367; 96375; 96376; 99284; A9270-GY; G0008; G0378; G8978-GP-CI; G8979-GP-CI; G8980-GP-CI; J0696; J1940; J3475